=== PATIENT | female | born 1990 | race Caucasian/White ===

== ENCOUNTER → 2016-05-12 | Outpatient (REF) | payer MEDICAID ==
[~2016-05-12] MED LIST: /ANUSHCSU TOP; /MOM400 PO; ACET50TA PO; DOCU10ELUD PO; IBUP600T26 PO; KEPP500T6 PO; NORT25CA2 PO; OXYC1SOL PO; OXYC5CAP28 PO; PAME50CA PO; PRENTAB74 PO; TOPA100T8 PO; VIMP100T PO
== END ==
LOC: M LABNEURO 10:30
PROVIDERS: ATTEND Physician Assistant Medical
DX: R56.9 Unspecified convulsions (principal)

== ENCOUNTER → 2016-09-19 | Outpatient (CLI) | payer MEDICAID, OTHER ==
[~2016-09-19] MED LIST changes: +KEPP1TAB PO; -KEPP500T6 PO; -OXYC1SOL PO; +OXYC1SOL3 PO; +TOPA100T12 PO; -TOPA100T8 PO
[2016-09-19 13:19] LABS: BASO % 0.6 % (0.0-1.0); EOS # 0.1 K/mm3 (0.0-0.50); EOS % 2.3 % (0.0-3.0); LARGE UNSTAINED CELL # 0.1 K/mm3 (0.0-0.4); LARGE UNSTAINED CELL % 2.3 % (0.0-4.0); LYMPH # 2.2 K/mm3 (1.5-6.5); LYMPH % 33.3 % (24.0-44.0); MEAN CORPUSCULAR HEMOGLOBIN 30.9 pg (27.0-33.0); MEAN CORPUSCULAR HGB CONC 33.2 g/dl (32.0-36.5); MONO # 0.4 K/mm3 (0.0-0.8); MONO % 6.7 % (0.0-5.0); NEUTROPHILS # 3.4 K/mm3 (1.8-7.7); NEUTROPHILS % 54.8 % (36.0-66.0); PLATELET COUNT, AUTOMATED 250 k/mm3 (150-450); RED CELL DISTRIBUTION WIDTH 13.3 % (11.5-14.5); WHITE BLOOD COUNT 6.1 K/mm3 (4.0-10.0)
[2016-09-19 14:15] LABS: ALBUMIN 3.6 GM/DL (3.2-5.2); ALBUMIN/GLOBULIN RATIO 0.97 (1.00-1.93); ALKALINE PHOSPHATASE 80 U/L (45-117); ALT/SGPT 16 U/L (12-78); ANION GAP 9 MEQ/L (8-16); AST/SGOT 19 U/L (15-37); BILIRUBIN,TOTAL 0.3 MG/DL (0.2-1.0); BLOOD UREA NITROGEN 9 MG/DL (7-18); CALCIUM LEVEL 9.1 MG/DL (8.5-10.1); CARBON DIOXIDE LEVEL 29 MEQ/L (21-32); CHLORIDE LEVEL 103 MEQ/L (98-107); CREATININE FOR GFR 0.57 MG/DL (0.55-1.02); FREE T4 0.93 NG/DL (0.76-1.46); GLOMERULAR FILTRATION RATE > 60.0 (>60); GLUCOSE, FASTING 55 MG/DL (70-105); POTASSIUM SERUM 4.4 MEQ/L (3.5-5.1); SODIUM LEVEL 141 MEQ/L (136-145); TOTAL PROTEIN 7.3 GM/DL (6.4-8.2)
[2016-09-20 09:53] LABS: T UPTAKE 32 % (30-39); THYROXINE (T4) 7.4 UG/DL (4.5-12.0)
[2016-09-21 09:52] LABS: THYROID PEROXIDASE ANTIBODY < 28.0 U/ML (<60.0)
== END ==
LOC: M LAB 11:33
PROVIDERS: ATTEND Nurse Practitioner Family
DX: G40.909 Epilepsy, unspecified, not intractable, without status epilepticus (principal); R94.6 Abnormal results of thyroid function studies; G43.109 Migraine with aura, not intractable, without status migrainosus

== ENCOUNTER 2017-01-10 09:00 | Outpatient (RCR) | payer MEDICAID | END 2017-01-12 | disposition still patient (30) | LOC: M OUTALCOH 09:00 | PROVIDERS: ATTEND Psychiatry & Neurology Psychiatry | DX: F11.20 Opioid dependence, uncomplicated (principal); F17.200 Nicotine dependence, unspecified, uncomplicated ==

== ENCOUNTER → 2017-01-10 | Outpatient (CLI) | payer OTHER ==
[2017-01-10 13:25] LABS: FREE T4 0.9 NG/DL (0.76-1.46)
== END ==
LOC: M LAB 11:30
PROVIDERS: ATTEND Nurse Practitioner Family
DX: R94.6 Abnormal results of thyroid function studies (principal)

== ENCOUNTER 2017-07-16 01:01 | Inpatient (IN) | payer OTHER, MEDICAID ==
[2017-07-15] MEDS: NS 1,000 ML IV (00:30)
[2017-07-15 23:26] LABS: BASO # 0.1 10^3/uL (0.0-0.2); BASO % 0.4 % (0.0-1.0); EOS # 0.3 10^3/uL (0.0-0.50); EOS % 1.8 % (0.0-3.0); HEMATOCRIT 41.7 % (36.0-47.0); IMMATURE GRANULOCYTE % 0.3 % (0-3.0); LYMPH # 2.4 10^3/uL (1.5-6.5); LYMPH % 16.4 % (24.0-44.0); MEAN CORPUSCULAR HEMOGLOBIN 30.1 pg (27.0-33.0); MEAN CORPUSCULAR HGB CONC 33.6 g/dl (32.0-36.5); MEAN CORPUSCULAR VOLUME 89.7 fl (80.0-96.0); MONO # 0.9 10^3/uL (0.0-0.8); MONO % 6.2 % (0.0-5.0); NEUTROPHILS % 74.9 % (36.0-66.0); PLATELET COUNT, AUTOMATED 268 10^3/uL (150-450); RED BLOOD COUNT 4.65 10^6/uL (4.00-5.40); RED CELL DISTRIBUTION WIDTH 11.7 % (11.5-14.5); WHITE BLOOD COUNT 14.7 10^3/uL (4.0-10.0)
[2017-07-15 23:35] LABS: BEDSIDE GLUCOSE 103 MG/DL (70-105)
[2017-07-15] MEDS: NALOXONE INJ 0.4 MG/1 ML VIAL (J2310) IV ×2 (23:38→23:53)
[2017-07-15 23:44] LABS: OSMOLALITY SERUM 289 MOSM/KG (275-295)
[2017-07-15 23:51] LABS: CONTROL LINE HCG INT CTR LINE PRESENT; HCG, SERUM QUALITATIVE NEGATIVE (NEGATIVE)
[2017-07-15 23:52] LABS: ABG BASE EXCESS -1.5 (-2.0-2.0); ABG HCO3 23.8 MEQ/L (22.0-26.0); ABG PARTIAL PRESSURE CO2 42.4 mmHg (35.0-45.0); ABG STANDARD HCO3 22.1 MEQ/L (22.0-26.0); ABG TOTAL CO2 25.1 MEQ/L (22.0-29.0); ABG pH (ARTERIAL) 7.367 UNITS (7.350-7.450)
[2017-07-15 23:53] LABS: ABG PARTIAL PRESSURE O2 26.9 mmHg (75.0-100.0)
[2017-07-15 23:57] LABS: AMPHETAMINES LEVEL URINE NEGATIVE (NEGATIVE); BARBITURATES URINE NEGATIVE (NEGATIVE); BENZODIAZEPINES URINE NEGATIVE (NEGATIVE); CANNABINOIDS URINE NEGATIVE (NEGATIVE); COCAINE METABOLITE URINE NEGATIVE (NEGATIVE); METHADONE URINE NEGATIVE (NEGATIVE); OPIATES URINE POSITIVE (NEGATIVE); PHENCYCLIDINE URINE NEGATIVE (NEGATIVE)
[2017-07-16 00:03] LABS: ALBUMIN 4.4 GM/DL (3.2-5.2); ALBUMIN/GLOBULIN RATIO 1.22 (1.00-1.93); ALKALINE PHOSPHATASE 150 U/L (45-117); ALT/SGPT 15 U/L (12-78); ANION GAP 7 MEQ/L (8-16); AST/SGOT 23 U/L (7-37); BILIRUBIN,DIRECT < 0.1 MG/DL (0.0-0.2); BILIRUBIN,TOTAL 0.4 MG/DL (0.2-1.0); BLOOD UREA NITROGEN 10 MG/DL (7-18); CALCIUM LEVEL 9.3 MG/DL (8.5-10.1); CARBON DIOXIDE LEVEL 22 MEQ/L (21-32); CHLORIDE LEVEL 109 MEQ/L (98-107); CK-MB VALUE MASS 1.5 NG/ML (<3.6); CPK CREATINE PHOSPHOKINASE 184 U/L (26-192); CREATININE FOR GFR 0.97 MG/DL (0.55-1.30); ETHYL ALCOHOL (ETHANOL) < 0.003 % (0.000-0.010); GLOMERULAR FILTRATION RATE > 60.0 (>60); GLUCOSE, FASTING 105 MG/DL (70-100); MB/CK RELATIVE INDEX 0.81 (< OR =4); SALICYLATE LEVEL 2.1 MG/DL (5.0-30.0); SODIUM LEVEL 138 MEQ/L (136-145); TROPONIN I < 0.02 NG/ML (< 0.10)
[2017-07-16 00:06] LABS: ACETAMINOPHEN LEVEL < 2.0 UG/ML (10.0-30.0); LITHIUM LEVEL 2.72 MEQ/L (0.60-1.20)
[2017-07-16] MEDS: LORazepam 2 MG/ML VIAL (J2060) IV (00:10)
[2017-07-16] MEDS: NALOXONE INJ 0.4 MG/1 ML VIAL (J2310) IV (00:25)
[2017-07-16] MEDS: ETOMIDATE INJ 20MG/10ML VIAL IV (00:43)
[2017-07-16] MEDS: ROCURONIUM BROMIDE 50 MG/5 ML VIAL IV (00:45)
[2017-07-16] MEDS: PROPOFOL 1,000 MG in APPROPRIATE DILUENT 1 EA IV ×5 (00:48→21:13)
[~2017-07-16 01:01] MED LIST changes: -/ANUSHCSU TOP; -/MOM400 PO; -ACET50TA PO; +AMMONIA AROMATIC INHALANT (FLOOR STOCK) As Ordered; -DOCU10ELUD PO; -IBUP600T26 PO; -KEPP1TAB PO; +LORazepam 2 MG/ML VIAL (J2060) As Ordered; -NORT25CA2 PO; -OXYC1SOL3 PO; -OXYC5CAP28 PO; -PAME50CA PO; -PRENTAB74 PO; +PROPOFOL 1,000 MG/100 ML VIAL As Ordered; -TOPA100T12 PO; -VIMP100T PO
[2017-07-16 01:53] LABS: ABG BASE EXCESS -5.9 (-2.0-2.0); ABG O2 SATURATION 99.1 % (95.0-99.0); ABG PARTIAL PRESSURE CO2 26.7 mmHg (35.0-45.0); ABG PARTIAL PRESSURE O2 145.7 mmHg (75.0-100.0); ABG STANDARD HCO3 19.7 MEQ/L (22.0-26.0); ABG TOTAL CO2 17.8 MEQ/L (22.0-29.0); ABG pH (ARTERIAL) 7.421 UNITS (7.350-7.450)
[2017-07-16] MEDS ORDERED: ONDANSETRON 4 MG TAB (S0181) PO (02:00)
[2017-07-16] MEDS ORDERED: ALBUTEROL SULFATE 2.5 MG/0.5 ML INH NEB SOLN NEB (02:15)
[2017-07-16 02:53] LABS: AMMONIA 46 uMOL/L (<32)
[2017-07-16 02:54] LABS: LITHIUM LEVEL 2.23 MEQ/L (0.60-1.20)
[2017-07-16 02:57] LABS: LACTIC ACID SEPSIS PROTOCOL 0.7 MMOL/L (0.4-2.0)
[2017-07-16] MEDS: NS 1,000 ML IV ×4 (03:13→23:49)
[2017-07-16] MEDS: SODIUM CHLORIDE 0.9% 1000 ML IV (03:44)
[2017-07-16] MEDS: MIDAZOLAM INJ 2 MG/2 ML VIAL (J2250) IV ×9 (05:52→23:49)
[2017-07-16] MEDS: IPRATROPIUM 0.5MG/ALBUTEROL 2.5MG INH SOL UD 3ML (DUONEB)(J7620) NEB ×5 (06:07→19:54)
[2017-07-16 08:05] LABS: LITHIUM LEVEL 0.73 MEQ/L (0.60-1.20)
[2017-07-16] MEDS: CHLORHEXIDINE ORAL RINSE 0.12%/15ML 120ML BOTTLE MT ×2 (09:44→20:58)
[2017-07-16] MEDS: ENOXAPARIN 40 MG/0.4 ML SYRINGE (J1650) SC (09:44)
[2017-07-16] MEDS: PANTOPRAZOLE 40MG INJ (PROTONIX) (C9113) IV (09:44)
[2017-07-16 11:23] LABS: LITHIUM LEVEL 1.13 MEQ/L (0.60-1.20)
[2017-07-16 12:48] LABS: BASO # 0.1 10^3/uL (0.0-0.2); BASO % 0.5 % (0.0-1.0); EOS # 0.2 10^3/uL (0.0-0.50); EOS % 1.4 % (0.0-3.0); HEMATOCRIT 33.7 % (36.0-47.0); IMMATURE GRANULOCYTE % 0.3 % (0-3.0); LYMPH # 2.5 10^3/uL (1.5-6.5); LYMPH % 18.6 % (24.0-44.0); MEAN CORPUSCULAR HEMOGLOBIN 29.9 pg (27.0-33.0); MEAN CORPUSCULAR HGB CONC 33.8 g/dl (32.0-36.5); MEAN CORPUSCULAR VOLUME 88.5 fl (80.0-96.0); MONO # 1.1 10^3/uL (0.0-0.8); MONO % 8.3 % (0.0-5.0); NEUTROPHILS # 9.4 10^3/uL (1.8-7.7); NEUTROPHILS % 70.9 % (36.0-66.0); PLATELET COUNT, AUTOMATED 210 10^3/uL (150-450); RED BLOOD COUNT 3.81 10^6/uL (4.00-5.40); RED CELL DISTRIBUTION WIDTH 11.7 % (11.5-14.5); WHITE BLOOD COUNT 13.3 10^3/uL (4.0-10.0)
[2017-07-16 13:09] LABS: HEMOGLOBIN 11.4 g/dl (12.0-15.5)
[2017-07-16 13:24] LABS: ALBUMIN 3.3 GM/DL (3.2-5.2); ALBUMIN/GLOBULIN RATIO 1.27 (1.00-1.93); ALKALINE PHOSPHATASE 126 U/L (45-117); ALT/SGPT 11 U/L (12-78); ANION GAP 6 MEQ/L (8-16); AST/SGOT 16 U/L (7-37); BILIRUBIN,TOTAL 0.4 MG/DL (0.2-1.0); BLOOD UREA NITROGEN 4 MG/DL (7-18); CARBON DIOXIDE LEVEL 29 MEQ/L (21-32); CHLORIDE LEVEL 107 MEQ/L (98-107); CHOLESTEROL LEVEL 104 MG/DL (< 200); CPK CREATINE PHOSPHOKINASE 232 U/L (26-192); CREATININE FOR GFR 0.64 MG/DL (0.55-1.30); GLOMERULAR FILTRATION RATE > 60.0 (>60); GLUCOSE, FASTING 108 MG/DL (70-100); LDH LACTATE DEHYDROGENASE 137 U/L (84-246); MAGNESIUM LEVEL 1.8 MG/DL (1.8-2.4); PHOSPHORUS LEVEL 1.7 MG/DL (2.5-4.9); SODIUM LEVEL 142 MEQ/L (136-145); TOTAL PROTEIN 5.9 GM/DL (6.4-8.2); TRIGLYCERIDES LEVEL 96 MG/DL (<150)
[2017-07-16 13:40] LABS: POTASSIUM SERUM 2.5 MEQ/L (3.5-5.1)
[2017-07-16] MEDS: KCL 10MEQ/100ML SWI (KRUN) 10 MEQ in APPROPRIATE DILUENT 1 EA IV (14:10)
[2017-07-16 15:33] LABS: LITHIUM LEVEL 1.15 MEQ/L (0.60-1.20)
[2017-07-16] MEDS: POTASSIUM PHOSPHATE INJ 18 MMOL in D5W 250 ML IV (16:10)
[2017-07-17] MEDS: IPRATROPIUM 0.5MG/ALBUTEROL 2.5MG INH SOL UD 3ML (DUONEB)(J7620) NEB ×7 (00:17→23:19)
[2017-07-17] MEDS: MIDAZOLAM INJ 2 MG/2 ML VIAL (J2250) IV ×15 (00:31→23:58)
[2017-07-17] MEDS: PROPOFOL 1,000 MG in APPROPRIATE DILUENT 1 EA IV ×7 (01:18→23:32)
[2017-07-17] MEDS: NS 1,000 ML IV ×2 (04:54→09:42)
[2017-07-17 04:57] LABS: BASO # 0.1 10^3/uL (0.0-0.2); BASO % 0.4 % (0.0-1.0); EOS % 0.3 % (0.0-3.0); HEMOGLOBIN 10.5 g/dl (12.0-15.5); IMMATURE GRANULOCYTE % 0.3 % (0-3.0); LYMPH # 1.3 10^3/uL (1.5-6.5); LYMPH % 8.5 % (24.0-44.0); MEAN CORPUSCULAR HEMOGLOBIN 30.2 pg (27.0-33.0); MEAN CORPUSCULAR HGB CONC 32.8 g/dl (32.0-36.5); MONO # 1.4 10^3/uL (0.0-0.8); MONO % 8.7 % (0.0-5.0); NEUTROPHILS # 12.9 10^3/uL (1.8-7.7); NEUTROPHILS % 81.8 % (36.0-66.0); PLATELET COUNT, AUTOMATED 200 10^3/uL (150-450); RED BLOOD COUNT 3.48 10^6/uL (4.00-5.40); RED CELL DISTRIBUTION WIDTH 12.3 % (11.5-14.5); WHITE BLOOD COUNT 15.7 10^3/uL (4.0-10.0)
[2017-07-17 05:18] LABS: ALBUMIN 2.9 GM/DL (3.2-5.2); ALBUMIN/GLOBULIN RATIO 0.97 (1.00-1.93); ALKALINE PHOSPHATASE 120 U/L (45-117); ALT/SGPT 11 U/L (12-78); ANION GAP 4 MEQ/L (8-16); AST/SGOT 14 U/L (7-37); BILIRUBIN,TOTAL 0.4 MG/DL (0.2-1.0); BLOOD UREA NITROGEN 3 MG/DL (7-18); CALCIUM LEVEL 7.3 MG/DL (8.5-10.1); CARBON DIOXIDE LEVEL 28 MEQ/L (21-32); CHLORIDE LEVEL 114 MEQ/L (98-107); CHOLESTEROL LEVEL 90 MG/DL (< 200); CPK CREATINE PHOSPHOKINASE 193 U/L (26-192); CREATININE FOR GFR 0.73 MG/DL (0.55-1.30); GLOMERULAR FILTRATION RATE > 60.0 (>60); GLUCOSE, FASTING 125 MG/DL (70-100); LDH LACTATE DEHYDROGENASE 134 U/L (84-246); MAGNESIUM LEVEL 1.7 MG/DL (1.8-2.4); PHOSPHORUS LEVEL 3.5 MG/DL (2.5-4.9); POTASSIUM SERUM 3.4 MEQ/L (3.5-5.1); SODIUM LEVEL 146 MEQ/L (136-145); TOTAL PROTEIN 5.9 GM/DL (6.4-8.2); TRIGLYCERIDES LEVEL 63 MG/DL (<150)
[2017-07-17] MEDS: MORPHINE 4 MG/ML 1ML VIAL/SYRINGE (J2270) IV ×4 (06:25→16:21)
[2017-07-17] MEDS: ACETAMINOPHEN 325 MG/10.15 ML UDC GT ×2 (06:26→20:10)
[2017-07-17 07:01] LABS: AMMONIA 41 uMOL/L (<32)
[2017-07-17 07:05] LABS: LACTIC ACID SEPSIS PROTOCOL 1.2 MMOL/L (0.4-2.0)
[2017-07-17 07:10] LABS: LITHIUM LEVEL 0.91 MEQ/L (0.60-1.20)
[2017-07-17 07:15] LABS: ABG BASE EXCESS -0.2 (-2.0-2.0); ABG HCO3 23.5 MEQ/L (22.0-26.0); ABG O2 SATURATION 97.9 % (95.0-99.0); ABG PARTIAL PRESSURE O2 98.3 mmHg (75.0-100.0); ABG STANDARD HCO3 24.3 MEQ/L (22.0-26.0); ABG TOTAL CO2 24.5 MEQ/L (22.0-29.0); ABG pH (ARTERIAL) 7.444 UNITS (7.350-7.450)
[2017-07-17] MEDS: CHLORHEXIDINE ORAL RINSE 0.12%/15ML 120ML BOTTLE MT ×2 (07:51→20:11)
[2017-07-17] MEDS: ENOXAPARIN 40 MG/0.4 ML SYRINGE (J1650) SC (07:51)
[2017-07-17] MEDS: PANTOPRAZOLE 40MG INJ (PROTONIX) (C9113) IV (08:04)
[2017-07-17] MEDS: D5W/0.45% SODIUM CHLORIDE 1,000 ML IV (14:23)
[2017-07-17] MEDS: KCL 10MEQ/100ML SWI (KRUN) 10 MEQ in APPROPRIATE DILUENT 1 EA IV ×2 (14:23→15:48)
[2017-07-17] MEDS: MAG SULF 1GM/100ML (MAG RUN) 1 GM in APPROPRIATE DILUENT 1 EA IV (17:00)
[2017-07-17] MEDS: PIPERACILLIN/TAZOBACTAM SOD 3.375 GM in D5W MINI-BAG PLUS 50 ML IV ×2 (17:39→23:30)
[2017-07-17] MEDS: levETIRAcetam INJection 1,000 MG in D5W 100 ML IV (18:22)
[2017-07-17] MEDS: VANCOMYCIN HCL 1,000 MG, VIAL MATE ADAPTER 1 EACH in D5W 250 ML IV (18:46)
[2017-07-18 00:59] LABS: CK-MB VALUE MASS < 1.0 NG/ML (<3.6); CPK CREATINE PHOSPHOKINASE 132 U/L (26-192); MB/CK RELATIVE INDEX 0.75 (< OR =4); TROPONIN I < 0.02 NG/ML (< 0.10)
[2017-07-18] MEDS: VANCOMYCIN HCL 1,000 MG, VIAL MATE ADAPTER 1 EACH in D5W 250 ML IV ×3 (03:33→19:28)
[2017-07-18] MEDS: PROPOFOL 1,000 MG in APPROPRIATE DILUENT 1 EA IV ×4 (03:34→21:51)
[2017-07-18] MEDS: IPRATROPIUM 0.5MG/ALBUTEROL 2.5MG INH SOL UD 3ML (DUONEB)(J7620) NEB ×6 (04:03→23:23)
[2017-07-18] MEDS: PIPERACILLIN/TAZOBACTAM SOD 3.375 GM in D5W MINI-BAG PLUS 50 ML IV ×4 (04:51→23:13)
[2017-07-18 05:04] LABS: BASO # 0.1 10^3/uL (0.0-0.2); BASO % 0.4 % (0.0-1.0); EOS # 0.2 10^3/uL (0.0-0.50); EOS % 1.5 % (0.0-3.0); HEMATOCRIT 31.9 % (36.0-47.0); HEMOGLOBIN 10.3 g/dl (12.0-15.5); IMMATURE GRANULOCYTE % 0.6 % (0-3.0); LYMPH # 1.7 10^3/uL (1.5-6.5); LYMPH % 12.1 % (24.0-44.0); MEAN CORPUSCULAR HEMOGLOBIN 30.2 pg (27.0-33.0); MEAN CORPUSCULAR HGB CONC 32.3 g/dl (32.0-36.5); MEAN CORPUSCULAR VOLUME 93.5 fl (80.0-96.0); MONO # 1.1 10^3/uL (0.0-0.8); MONO % 7.3 % (0.0-5.0); NEUTROPHILS # 11.2 10^3/uL (1.8-7.7); NEUTROPHILS % 78.1 % (36.0-66.0); PLATELET COUNT, AUTOMATED 132 10^3/uL (150-450); RED BLOOD COUNT 3.41 10^6/uL (4.00-5.40); RED CELL DISTRIBUTION WIDTH 13.1 % (11.5-14.5); WHITE BLOOD COUNT 14.4 10^3/uL (4.0-10.0)
[2017-07-18] MEDS: levETIRAcetam INJection 1,000 MG in D5W 100 ML IV ×2 (05:47→18:57)
[2017-07-18 05:49] LABS: POS COUNT POS FLAG
[2017-07-18] MEDS: MIDAZOLAM INJ 2 MG/2 ML VIAL (J2250) IV ×4 (06:46→23:43)
[2017-07-18 07:44] LABS: BLOOD UREA NITROGEN 4 MG/DL (7-18); CREATININE FOR GFR 0.63 MG/DL (0.55-1.30); GLOMERULAR FILTRATION RATE > 60.0 (>60); GLUCOSE, FASTING 163 MG/DL (70-100); SODIUM LEVEL 145 MEQ/L (136-145)
[2017-07-18 07:45] LABS: CHLORIDE LEVEL 112 MEQ/L (98-107)
[2017-07-18 07:46] LABS: ALKALINE PHOSPHATASE 123 U/L (45-117); ALT/SGPT 10 U/L (12-78); ANION GAP 8 MEQ/L (8-16); AST/SGOT 14 U/L (7-37); BILIRUBIN,TOTAL 0.4 MG/DL (0.2-1.0); CALCIUM LEVEL 7.8 MG/DL (8.5-10.1); CARBON DIOXIDE LEVEL 25 MEQ/L (21-32); CHOLESTEROL LEVEL 72 MG/DL (< 200); CK-MB VALUE MASS < 1.0 NG/ML (<3.6); CPK CREATINE PHOSPHOKINASE 106 U/L (26-192); LDH LACTATE DEHYDROGENASE 133 U/L (84-246); MB/CK RELATIVE INDEX 0.94 (< OR =4); PHOSPHORUS LEVEL 1.6 MG/DL (2.5-4.9); TRIGLYCERIDES LEVEL 70 MG/DL (<150)
[2017-07-18 07:47] LABS: ALBUMIN 2.6 GM/DL (3.2-5.2); ALBUMIN/GLOBULIN RATIO 0.81 (1.00-1.93); MAGNESIUM LEVEL 2.1 MG/DL (1.8-2.4); TOTAL PROTEIN 5.8 GM/DL (6.4-8.2); TROPONIN I < 0.02 NG/ML (< 0.10)
[2017-07-18 07:51] LABS: POTASSIUM SERUM 2.8 MEQ/L (3.5-5.1)
[2017-07-18] MEDS: POTASSIUM PHOSPHATE INJ 20 MMOL in D5W 250 ML IV (09:20)
[2017-07-18] MEDS: PANTOPRAZOLE 40MG INJ (PROTONIX) (C9113) IV (10:29)
[2017-07-18] MEDS: ENOXAPARIN 40 MG/0.4 ML SYRINGE (J1650) SC (10:29)
[2017-07-18] MEDS: CHLORHEXIDINE ORAL RINSE 0.12%/15ML 120ML BOTTLE MT ×2 (10:30→20:43)
[2017-07-18] MEDS ORDERED: dexameTHASONE 20 MG/5 ML VIAL (J1100) As Ordered (11:01)
[2017-07-18] MEDS: dexameTHASONE 20 MG/5 ML VIAL (J1100) IV ×2 (11:05→20:42)
[2017-07-18] MEDS: RACEPINEPHrine 2.25 % UD INHA NEB (11:05)
[2017-07-18] MEDS ORDERED: FUROSEMIDE 40 MG/4 ML VIAL (J1940) As Ordered (11:10)
[2017-07-18] MEDS ORDERED: SUCCINYLCHOLINE INJ 200 MG/10 ML VIAL (J0330) As Ordered (11:14)
[2017-07-18] MEDS: SUCCINYLCHOLINE INJ 200 MG/10 ML VIAL (J0330) IV ×2 (11:56→12:08)
[2017-07-18] MEDS: FUROSEMIDE 40 MG/4 ML VIAL (J1940) IV (12:08)
[2017-07-18 12:45] LABS: CK-MB VALUE MASS < 1.0 NG/ML (<3.6); CPK CREATINE PHOSPHOKINASE 167 U/L (26-192); MB/CK RELATIVE INDEX 0.59 (< OR =4); TROPONIN I < 0.02 NG/ML (< 0.10)
[2017-07-18 14:11] LABS: ABG BASE EXCESS 3.3 (-2.0-2.0); ABG HCO3 27.3 MEQ/L (22.0-26.0); ABG PARTIAL PRESSURE CO2 39.3 mmHg (35.0-45.0); ABG PARTIAL PRESSURE O2 133.2 mmHg (75.0-100.0); ABG STANDARD HCO3 27.4 MEQ/L (22.0-26.0); ABG TOTAL CO2 28.5 MEQ/L (22.0-29.0); ABG pH (ARTERIAL) 7.459 UNITS (7.350-7.450)
[2017-07-18 14:29] LABS: ANION GAP 8 MEQ/L (8-16); BLOOD UREA NITROGEN 5 MG/DL (7-18); CALCIUM LEVEL 8.3 MG/DL (8.5-10.1); CARBON DIOXIDE LEVEL 27 MEQ/L (21-32); CHLORIDE LEVEL 110 MEQ/L (98-107); CREATININE FOR GFR 0.69 MG/DL (0.55-1.30); GLOMERULAR FILTRATION RATE > 60.0 (>60); GLUCOSE, FASTING 158 MG/DL (70-100); POTASSIUM SERUM 3.3 MEQ/L (3.5-5.1); SODIUM LEVEL 145 MEQ/L (136-145)
[2017-07-18 18:24] LABS: MAGNESIUM LEVEL 1.6 MG/DL (1.8-2.4)
[2017-07-18 18:24] LABS: POTASSIUM SERUM 3.1 MEQ/L (3.5-5.1)
[2017-07-18 18:30] LABS: VANCOMYCIN LEVEL TROUGH 14.7 UG/ML (10.0-20.0)
[2017-07-18] MEDS: MAG SULF 1GM/100ML (MAG RUN) 1 GM in APPROPRIATE DILUENT 1 EA IV (19:54)
[2017-07-18] MEDS: KCL 10MEQ/100ML SWI (KRUN) 10 MEQ in APPROPRIATE DILUENT 1 EA IV ×2 (20:43→21:44)
[2017-07-18] MEDS: ACETAMINOPHEN 325 MG/10.15 ML UDC GT (20:54)
[2017-07-19] MEDS: PROPOFOL 1,000 MG in APPROPRIATE DILUENT 1 EA IV ×5 (01:19→20:57)
[2017-07-19] MEDS: VANCOMYCIN HCL 1,000 MG, VIAL MATE ADAPTER 1 EACH in D5W 250 ML IV (03:14)
[2017-07-19] MEDS: IPRATROPIUM 0.5MG/ALBUTEROL 2.5MG INH SOL UD 3ML (DUONEB)(J7620) NEB ×6 (03:35→23:36)
[2017-07-19] MEDS: PIPERACILLIN/TAZOBACTAM SOD 3.375 GM in D5W MINI-BAG PLUS 50 ML IV ×4 (04:33→23:42)
[2017-07-19 05:04] LABS: BASO % 0.2 % (0.0-1.0); HEMATOCRIT 32.5 % (36.0-47.0); HEMOGLOBIN 10.8 g/dl (12.0-15.5); LYMPH # 0.6 10^3/uL (1.5-6.5); MEAN CORPUSCULAR HGB CONC 33.2 g/dl (32.0-36.5); MEAN CORPUSCULAR VOLUME 90.3 fl (80.0-96.0); MONO # 0.4 10^3/uL (0.0-0.8); MONO % 3.8 % (0.0-5.0); NEUTROPHILS # 10.3 10^3/uL (1.8-7.7); PLATELET COUNT, AUTOMATED 211 10^3/uL (150-450); RED CELL DISTRIBUTION WIDTH 13.2 % (11.5-14.5); WHITE BLOOD COUNT 11.5 10^3/uL (4.0-10.0)
[2017-07-19 05:23] LABS: ALBUMIN 2.7 GM/DL (3.2-5.2); ALBUMIN/GLOBULIN RATIO 0.73 (1.00-1.93); ALKALINE PHOSPHATASE 122 U/L (45-117); ALT/SGPT 11 U/L (12-78); ANION GAP 6 MEQ/L (8-16); AST/SGOT 14 U/L (7-37); BILIRUBIN,TOTAL 0.3 MG/DL (0.2-1.0); BLOOD UREA NITROGEN 6 MG/DL (7-18); CALCIUM LEVEL 8.3 MG/DL (8.5-10.1); CARBON DIOXIDE LEVEL 29 MEQ/L (21-32); CHLORIDE LEVEL 107 MEQ/L (98-107); CHOLESTEROL LEVEL 91 MG/DL (< 200); CPK CREATINE PHOSPHOKINASE 140 U/L (26-192); CREATININE FOR GFR 0.67 MG/DL (0.55-1.30); GLOMERULAR FILTRATION RATE > 60.0 (>60); GLUCOSE, FASTING 242 MG/DL (70-100); LDH LACTATE DEHYDROGENASE 154 U/L (84-246); MAGNESIUM LEVEL 2.1 MG/DL (1.8-2.4); PHOSPHORUS LEVEL 2.1 MG/DL (2.5-4.9); POTASSIUM SERUM 3.2 MEQ/L (3.5-5.1); SODIUM LEVEL 142 MEQ/L (136-145); TOTAL PROTEIN 6.4 GM/DL (6.4-8.2); TRIGLYCERIDES LEVEL 58 MG/DL (<150)
[2017-07-19] MEDS: levETIRAcetam INJection 1,000 MG in D5W 100 ML IV ×2 (05:42→17:04)
[2017-07-19] MEDS: POTASSIUM PHOSPHATE INJ 20 MMOL in D5W 250 ML IV (09:00)
[2017-07-19] MEDS: dexameTHASONE 20 MG/5 ML VIAL (J1100) IV ×2 (09:10→21:15)
[2017-07-19] MEDS: CHLORHEXIDINE ORAL RINSE 0.12%/15ML 120ML BOTTLE MT ×2 (09:10→20:57)
[2017-07-19] MEDS: PANTOPRAZOLE 40MG INJ (PROTONIX) (C9113) IV (09:10)
[2017-07-19] MEDS: ENOXAPARIN 40 MG/0.4 ML SYRINGE (J1650) SC (09:10)
[2017-07-19] MEDS: MIDAZOLAM INJ 2 MG/2 ML VIAL (J2250) IV ×6 (10:50→21:22)
[2017-07-19] MEDS ORDERED: POTASSIUM PHOSPHATE IV ×4 (11:00→20:00)
[2017-07-19] MEDS ORDERED: D5W IV ×4 (11:00→20:00)
[2017-07-19] MEDS: KCL 20MEQ IN D5/0.45NS 1000ML 1,000 ML IV (11:24)
[2017-07-19] MEDS: KCL 10MEQ/100ML SWI (KRUN) 10 MEQ in APPROPRIATE DILUENT 1 EA IV ×2 (11:25→13:01)
[2017-07-19] MEDS: POTASSIUM PHOSPHATE INJ 18 MMOL in D5W 250 ML IV (14:07)
[2017-07-19] MEDS: BISACODYL 10 MG SUPP PR (17:29)
[2017-07-19] MEDS: METOCLOPRAMIDE INJ 10MG/2ML VIAL (J2765) IV ×2 (17:29→23:41)
[2017-07-20] MEDS: PROPOFOL 1,000 MG in APPROPRIATE DILUENT 1 EA IV ×2 (01:56→07:43)
[2017-07-20] MEDS: IPRATROPIUM 0.5MG/ALBUTEROL 2.5MG INH SOL UD 3ML (DUONEB)(J7620) NEB ×2 (03:11→07:26)
[2017-07-20] MEDS: MORPHINE 4 MG/ML 1ML VIAL/SYRINGE (J2270) IV (04:41)
[2017-07-20 04:45] LABS: BASO % 0.1 % (0.0-1.0); HEMATOCRIT 34.1 % (36.0-47.0); IMMATURE GRANULOCYTE % 0.9 % (0-3.0); LYMPH % 8.5 % (24.0-44.0); MEAN CORPUSCULAR HEMOGLOBIN 29.5 pg (27.0-33.0); MEAN CORPUSCULAR HGB CONC 32.3 g/dl (32.0-36.5); MEAN CORPUSCULAR VOLUME 91.4 fl (80.0-96.0); MONO # 0.4 10^3/uL (0.0-0.8); MONO % 3.4 % (0.0-5.0); NEUTROPHILS # 10.4 10^3/uL (1.8-7.7); NEUTROPHILS % 87.1 % (36.0-66.0); PLATELET COUNT, AUTOMATED 248 10^3/uL (150-450); RED BLOOD COUNT 3.73 10^6/uL (4.00-5.40); RED CELL DISTRIBUTION WIDTH 13.2 % (11.5-14.5); WHITE BLOOD COUNT 11.9 10^3/uL (4.0-10.0)
[2017-07-20 05:15] LABS: ALBUMIN 3.1 GM/DL (3.2-5.2); ALBUMIN/GLOBULIN RATIO 0.78 (1.00-1.93); ALKALINE PHOSPHATASE 98 U/L (45-117); ALT/SGPT 15 U/L (12-78); ANION GAP 6 MEQ/L (8-16); AST/SGOT 16 U/L (7-37); BILIRUBIN,TOTAL 0.3 MG/DL (0.2-1.0); BLOOD UREA NITROGEN 9 MG/DL (7-18); CALCIUM LEVEL 8.4 MG/DL (8.5-10.1); CARBON DIOXIDE LEVEL 27 MEQ/L (21-32); CHLORIDE LEVEL 110 MEQ/L (98-107); CHOLESTEROL LEVEL 127 MG/DL (< 200); CREATININE FOR GFR 0.48 MG/DL (0.55-1.30); GLOMERULAR FILTRATION RATE > 60.0 (>60); GLUCOSE, FASTING 154 MG/DL (70-100); LDH LACTATE DEHYDROGENASE 181 U/L (84-246); MAGNESIUM LEVEL 2.1 MG/DL (1.8-2.4); PHOSPHORUS LEVEL 3.4 MG/DL (2.5-4.9); POTASSIUM SERUM 4.4 MEQ/L (3.5-5.1); SODIUM LEVEL 143 MEQ/L (136-145); TOTAL PROTEIN 7.1 GM/DL (6.4-8.2); TRIGLYCERIDES LEVEL 91 MG/DL (<150)
[2017-07-20] MEDS: KCL 20MEQ IN D5/0.45NS 1000ML 1,000 ML IV (05:19)
[2017-07-20] MEDS: METOCLOPRAMIDE INJ 10MG/2ML VIAL (J2765) IV (05:21)
[2017-07-20] MEDS: PIPERACILLIN/TAZOBACTAM SOD 3.375 GM in D5W MINI-BAG PLUS 50 ML IV ×4 (05:21→23:58)
[2017-07-20 05:36] LABS: CPK CREATINE PHOSPHOKINASE 291 U/L (26-192)
[2017-07-20] MEDS: PANTOPRAZOLE 40MG INJ (PROTONIX) (C9113) IV (07:44)
[2017-07-20] MEDS: CHLORHEXIDINE ORAL RINSE 0.12%/15ML 120ML BOTTLE MT (07:44)
[2017-07-20] MEDS: ENOXAPARIN 40 MG/0.4 ML SYRINGE (J1650) SC (07:44)
[2017-07-20] MEDS: dexameTHASONE 20 MG/5 ML VIAL (J1100) IV (07:44)
[2017-07-20] MEDS: RACEPINEPHrine 2.25 % UD INHA NEB (09:28)
[2017-07-20] MEDS: levETIRAcetam INJection 1,000 MG in D5W 100 ML IV ×2 (10:15→18:01)
[2017-07-21 05:14] LABS: BASO % 0.2 % (0.0-1.0); EOS # 0.1 10^3/uL (0.0-0.50); EOS % 0.9 % (0.0-3.0); HEMATOCRIT 33.3 % (36.0-47.0); IMMATURE GRANULOCYTE % 0.4 % (0-3.0); LYMPH % 29.6 % (24.0-44.0); MEAN CORPUSCULAR VOLUME 90.7 fl (80.0-96.0); MONO # 0.5 10^3/uL (0.0-0.8); NEUTROPHILS # 6.5 10^3/uL (1.8-7.7); NEUTROPHILS % 63.9 % (36.0-66.0); PLATELET COUNT, AUTOMATED 289 10^3/uL (150-450); RED BLOOD COUNT 3.67 10^6/uL (4.00-5.40); RED CELL DISTRIBUTION WIDTH 12.3 % (11.5-14.5); WHITE BLOOD COUNT 10.2 10^3/uL (4.0-10.0)
[2017-07-21 05:42] LABS: ALBUMIN 2.9 GM/DL (3.2-5.2); ALBUMIN/GLOBULIN RATIO 0.81 (1.00-1.93); ALKALINE PHOSPHATASE 83 U/L (45-117); ALT/SGPT 14 U/L (12-78); ANION GAP 6 MEQ/L (8-16); AST/SGOT 18 U/L (7-37); BILIRUBIN,TOTAL 0.3 MG/DL (0.2-1.0); BLOOD UREA NITROGEN 14 MG/DL (7-18); CALCIUM LEVEL 8.2 MG/DL (8.5-10.1); CARBON DIOXIDE LEVEL 26 MEQ/L (21-32); CHLORIDE LEVEL 109 MEQ/L (98-107); CHOLESTEROL LEVEL 126 MG/DL (< 200); CPK CREATINE PHOSPHOKINASE 257 U/L (26-192); CREATININE FOR GFR 0.46 MG/DL (0.55-1.30); GLOMERULAR FILTRATION RATE > 60.0 (>60); GLUCOSE, FASTING 129 MG/DL (70-100); LDH LACTATE DEHYDROGENASE 159 U/L (84-246); MAGNESIUM LEVEL 1.7 MG/DL (1.8-2.4); PHOSPHORUS LEVEL 2.4 MG/DL (2.5-4.9); POTASSIUM SERUM 3.2 MEQ/L (3.5-5.1); SODIUM LEVEL 141 MEQ/L (136-145); TOTAL PROTEIN 6.5 GM/DL (6.4-8.2); TRIGLYCERIDES LEVEL 158 MG/DL (<150)
[2017-07-21 05:53] LABS: FREE T4 1.03 NG/DL (0.76-1.46)
[2017-07-21] MEDS: PIPERACILLIN/TAZOBACTAM SOD 3.375 GM in D5W MINI-BAG PLUS 50 ML IV (06:11)
[2017-07-21] MEDS: levETIRAcetam INJection 1,000 MG in D5W 100 ML IV (06:11)
[2017-07-21] MEDS: MAG SULF 1GM/100ML (MAG RUN) 1 GM in APPROPRIATE DILUENT 1 EA IV (07:42)
[2017-07-21] MEDS: POTASSIUM CHLORIDE 10 MEQ SR TABLET PO (07:43)
[2017-07-21] MEDS: LevoFLOXacin 500 MG TABLET PO (09:51)
[2017-07-21] MEDS: PANTOPRAZOLE 40MG TAB (PROTONIX) PO (09:51)
[2017-07-21] MEDS: ENOXAPARIN 40 MG/0.4 ML SYRINGE (J1650) SC (09:52)
[2017-07-21 10:33] LABS: TOTAL T3 80.8 NG/DL (60.0-181.0)
[2017-07-21] MEDS: TOPIRAMATE (TopAMAX) 25 MG TAB PO ×2 (10:43→20:23)
[2017-07-21] MEDS: traZODone 50 MG TAB PO (20:23)
[2017-07-22] MEDS: ONDANSETRON 4 MG TAB (S0181) PO ×3 (01:29→09:30)
[2017-07-22] MEDS: LevoFLOXacin 500 MG TABLET PO (05:30)
[2017-07-22 07:11] LABS: HEMATOCRIT 36.3 % (36.0-47.0); HEMOGLOBIN 12.1 g/dl (12.0-15.5); MEAN CORPUSCULAR HEMOGLOBIN 29.7 pg (27.0-33.0); MEAN CORPUSCULAR HGB CONC 33.3 g/dl (32.0-36.5); PLATELET COUNT, AUTOMATED 357 10^3/uL (150-450); RED BLOOD COUNT 4.08 10^6/uL (4.00-5.40); RED CELL DISTRIBUTION WIDTH 11.9 % (11.5-14.5); WHITE BLOOD COUNT 8.2 10^3/uL (4.0-10.0)
[2017-07-22] MEDS: TOPIRAMATE (TopAMAX) 25 MG TAB PO ×2 (08:31→20:57)
[2017-07-22] MEDS: ENOXAPARIN 40 MG/0.4 ML SYRINGE (J1650) SC (08:32)
[2017-07-22 09:07] LABS: ALBUMIN 3.2 GM/DL (3.2-5.2); ALKALINE PHOSPHATASE 89 U/L (45-117); ALT/SGPT 29 U/L (12-78); ANION GAP 9 MEQ/L (8-16); AST/SGOT 40 U/L (7-37); BILIRUBIN,TOTAL 0.3 MG/DL (0.2-1.0); BLOOD UREA NITROGEN 12 MG/DL (7-18); CALCIUM LEVEL 8.8 MG/DL (8.5-10.1); CARBON DIOXIDE LEVEL 23 MEQ/L (21-32); CHLORIDE LEVEL 108 MEQ/L (98-107); CREATININE FOR GFR 0.57 MG/DL (0.55-1.30); GLOMERULAR FILTRATION RATE > 60.0 (>60); GLUCOSE, FASTING 120 MG/DL (70-100); SODIUM LEVEL 140 MEQ/L (136-145); TOTAL PROTEIN 7.2 GM/DL (6.4-8.2)
[2017-07-23] MEDS: LevoFLOXacin 500 MG TABLET PO (06:06)
[2017-07-23 06:36] LABS: BASO % 0.4 % (0.0-1.0); EOS # 0.3 10^3/uL (0.0-0.50); EOS % 3.4 % (0.0-3.0); HEMATOCRIT 36.1 % (36.0-47.0); HEMOGLOBIN 12.4 g/dl (12.0-15.5); LYMPH % 36.8 % (24.0-44.0); MEAN CORPUSCULAR HGB CONC 34.3 g/dl (32.0-36.5); MEAN CORPUSCULAR VOLUME 87.2 fl (80.0-96.0); MONO # 0.5 10^3/uL (0.0-0.8); MONO % 6.3 % (0.0-5.0); NEUTROPHILS # 4.2 10^3/uL (1.8-7.7); NEUTROPHILS % 52.1 % (36.0-66.0); PLATELET COUNT, AUTOMATED 394 10^3/uL (150-450); RED BLOOD COUNT 4.14 10^6/uL (4.00-5.40); RED CELL DISTRIBUTION WIDTH 11.9 % (11.5-14.5); WHITE BLOOD COUNT 8.1 10^3/uL (4.0-10.0)
[2017-07-23 06:54] LABS: ALBUMIN/GLOBULIN RATIO 0.79 (1.00-1.93); ALKALINE PHOSPHATASE 81 U/L (45-117); ALT/SGPT 66 U/L (12-78); ANION GAP 6 MEQ/L (8-16); AST/SGOT 57 U/L (7-37); BILIRUBIN,TOTAL 0.3 MG/DL (0.2-1.0); BLOOD UREA NITROGEN 10 MG/DL (7-18); CALCIUM LEVEL 8.7 MG/DL (8.5-10.1); CARBON DIOXIDE LEVEL 26 MEQ/L (21-32); CHLORIDE LEVEL 108 MEQ/L (98-107); CREATININE FOR GFR 0.54 MG/DL (0.55-1.30); GLOMERULAR FILTRATION RATE > 60.0 (>60); GLUCOSE, FASTING 95 MG/DL (70-100); MAGNESIUM LEVEL 2.1 MG/DL (1.8-2.4); POTASSIUM SERUM 2.8 MEQ/L (3.5-5.1); SODIUM LEVEL 140 MEQ/L (136-145); TOTAL PROTEIN 6.8 GM/DL (6.4-8.2)
[2017-07-23] MEDS: TOPIRAMATE (TopAMAX) 25 MG TAB PO (08:22)
[2017-07-23] MEDS: ENOXAPARIN 40 MG/0.4 ML SYRINGE (J1650) SC (08:22)
[2017-07-23] MEDS: POTASSIUM CHLORIDE 10 MEQ SR TABLET PO ×2 (08:23→12:48)
[2017-07-23 15:24] LABS: ANION GAP 8 MEQ/L (8-16); BLOOD UREA NITROGEN 10 MG/DL (7-18); CALCIUM LEVEL 8.6 MG/DL (8.5-10.1); CARBON DIOXIDE LEVEL 25 MEQ/L (21-32); CHLORIDE LEVEL 107 MEQ/L (98-107); CREATININE FOR GFR 0.59 MG/DL (0.55-1.30); GLOMERULAR FILTRATION RATE > 60.0 (>60); GLUCOSE, FASTING 83 MG/DL (70-100); POTASSIUM SERUM 3.5 MEQ/L (3.5-5.1); SODIUM LEVEL 140 MEQ/L (136-145)
== END 2017-07-23 17:15 | disposition home or self-care (01) | DRG 816 ==
LOC: M ED 01:01 → M MS5PR 07-21 14:47 → M ED INP 02:04 → M ICU 02:25
PROC: 5A1945Z Respiratory Ventilation, 24-96 Consecutive Hours (ICD-10-PCS; principal; 2017-07-16)
PROC: 5A1D70Z Performance of Urinary Filtration, Intermittent, Less than 6 Hours Per Day (ICD-10-PCS; 2017-07-16)
PROC: 06HV33Z Insertion of Infusion Device into Left Foot Vein, Percutaneous Approach (ICD-10-PCS; 2017-07-16)
PROC: 0BH17EZ Insertion of Endotracheal Airway into Trachea, Via Natural or Artificial Opening (ICD-10-PCS; 2017-07-18)
DX: T56.891A Toxic effect of other metals, accidental (unintentional), initial encounter (principal); J96.00 Acute respiratory failure, unspecified whether with hypoxia or hypercapnia; J81.0 Acute pulmonary edema; G92 Toxic encephalopathy; F11.10 Opioid abuse, uncomplicated; Z79.899 Other long term (current) drug therapy; F31.89 Other bipolar disorder; E86.0 Dehydration; G40.909 Epilepsy, unspecified, not intractable, without status epilepticus

== ENCOUNTER → 2017-08-15 | Outpatient (REF) | payer OTHER ==
[2017-08-15 13:41] LABS: ALBUMIN 3.9 GM/DL (3.2-5.2); ALBUMIN/GLOBULIN RATIO 1.03 (1.00-1.93); ALKALINE PHOSPHATASE 105 U/L (45-117); ALT/SGPT 17 U/L (12-78); ANION GAP 8 MEQ/L (8-16); AST/SGOT 13 U/L (7-37); BILIRUBIN,TOTAL 0.2 MG/DL (0.2-1.0); BLOOD UREA NITROGEN 9 MG/DL (7-18); CALCIUM LEVEL 8.4 MG/DL (8.5-10.1); CARBON DIOXIDE LEVEL 31 MEQ/L (21-32); CHLORIDE LEVEL 103 MEQ/L (98-107); CREATININE FOR GFR 0.61 MG/DL (0.55-1.30); GLOMERULAR FILTRATION RATE > 60.0 (>60); GLUCOSE, FASTING 59 MG/DL (70-100); LITHIUM LEVEL < 0.20 MEQ/L (0.60-1.20); POTASSIUM SERUM 3.4 MEQ/L (3.5-5.1); SODIUM LEVEL 142 MEQ/L (136-145); TOTAL PROTEIN 7.7 GM/DL (6.4-8.2)
== END ==
LOC: M SFHCPLAZ 10:48
DX: F31.9 Bipolar disorder, unspecified (principal)
CPT/HCPCS: 80178

== ENCOUNTER → 2017-08-30 | Outpatient (CLI) | payer MEDICAID | LOC: M OUTALCOH 08:55 | DX: Z13.9 Encounter for screening, unspecified (principal); F11.20 Opioid dependence, uncomplicated ==

== ENCOUNTER 2017-10-18 16:00 | Outpatient (RCR) | payer MEDICAID | END 2017-11-12 | LOC: M OUTALCOH 10-25 16:00 | DX: F11.20 Opioid dependence, uncomplicated (principal); F17.200 Nicotine dependence, unspecified, uncomplicated ==

== ENCOUNTER 2017-10-26 20:27 | Inpatient (IN) | payer MEDICAID, OTHER ==
[2017-10-26 21:14] LABS: BASO # 0.1 10^3/uL (0.0-0.2); BASO % 0.6 % (0.0-1.0); EOS # 0.2 10^3/uL (0.0-0.50); EOS % 2.3 % (0.0-3.0); HEMATOCRIT 39.4 % (36.0-47.0); HEMOGLOBIN 13.2 g/dl (12.0-15.5); IMMATURE GRANULOCYTE % 0.2 % (0-3.0); LYMPH # 3.4 10^3/uL (1.5-6.5); LYMPH % 34.7 % (24.0-44.0); MEAN CORPUSCULAR HEMOGLOBIN 29.5 pg (27.0-33.0); MEAN CORPUSCULAR HGB CONC 33.5 g/dl (32.0-36.5); MEAN CORPUSCULAR VOLUME 87.9 fl (80.0-96.0); MONO # 0.7 10^3/uL (0.0-0.8); MONO % 6.7 % (0.0-5.0); NEUTROPHILS # 5.4 10^3/uL (1.8-7.7); NEUTROPHILS % 55.5 % (36.0-66.0); PLATELET COUNT, AUTOMATED 272 10^3/uL (150-450); RED BLOOD COUNT 4.48 10^6/uL (4.00-5.40); RED CELL DISTRIBUTION WIDTH 12.7 % (11.5-14.5); WHITE BLOOD COUNT 9.7 10^3/uL (4.0-10.0)
[2017-10-26 21:20] LABS: OSMOLALITY SERUM 294 MOSM/KG (275-295)
[2017-10-26 21:24] LABS: CONTROL LINE HCG INT CTR LINE PRESENT; HCG, SERUM QUALITATIVE NEGATIVE (NEGATIVE)
[2017-10-26 21:32] LABS: ACETAMINOPHEN LEVEL < 2.0 UG/ML (10.0-30.0); ALBUMIN 3.9 GM/DL (3.2-5.2); ALBUMIN/GLOBULIN RATIO 1.11 (1.00-1.93); ALKALINE PHOSPHATASE 89 U/L (45-117); ALT/SGPT 14 U/L (12-78); ANION GAP 9 MEQ/L (8-16); AST/SGOT 19 U/L (7-37); BILIRUBIN,DIRECT < 0.1 MG/DL (0.0-0.2); BILIRUBIN,TOTAL 0.2 MG/DL (0.2-1.0); BLOOD UREA NITROGEN 10 MG/DL (7-18); CALCIUM LEVEL 8.6 MG/DL (8.5-10.1); CARBON DIOXIDE LEVEL 21 MEQ/L (21-32); CHLORIDE LEVEL 115 MEQ/L (98-107); CPK CREATINE PHOSPHOKINASE 109 U/L (26-192); CREATININE FOR GFR 0.77 MG/DL (0.55-1.30); GLOMERULAR FILTRATION RATE > 60.0 (>60); GLUCOSE, FASTING 89 MG/DL (70-100); SALICYLATE LEVEL < 1.7 MG/DL (5.0-30.0); SODIUM LEVEL 145 MEQ/L (136-145); TOTAL PROTEIN 7.4 GM/DL (6.4-8.2)
[2017-10-26] MEDS: NS 1,000 ML IV (22:28)
[2017-10-26 22:45] LABS: KETONE, URINE AUTO RFX NEGATIVE (NEGATIVE); LEUKOCYTE ESTERASE UR AUTO RFX NEGATIVE (NEGATIVE); MUCUS, URINE RFX SMALL (NEGATIVE); NITRITE, URINE AUTO RFX NEGATIVE (NEGATIVE); RBC, URINE AUTO RFX 0 /HPF (0-3); SPECIFIC GRAVITY UR AUTO RFX 1.004 (1.002-1.035); SQUAM EPITHELIAL CELL UR AURFX 0 /HPF (0-6); WBC, URINE AUTO RFX 1 /HPF (0-3)
[2017-10-26] MEDS: NALOXONE INJ 2 MG/2 ML SYRINGE (J2310) IV (22:48)
[2017-10-26] MEDS ORDERED: NALOXONE INJ 0.4 MG/1 ML VIAL (J2310) As Ordered (22:53)
[2017-10-26] MEDS ORDERED: PROPOFOL 1,000 MG/100 ML VIAL As Ordered (22:56)
[2017-10-26] MEDS: ETOMIDATE INJ 20MG/10ML VIAL IV (22:56)
[2017-10-26] MEDS: SUCCINYLCHOLINE INJ 200 MG/10 ML VIAL (J0330) IV (22:58)
[2017-10-26] MEDS: PROPOFOL 1,000 MG in APPROPRIATE DILUENT 1 EA IV ×3 (23:05→23:53)
[2017-10-26 23:17] LABS: AMPHETAMINES LEVEL URINE NEGATIVE (NEGATIVE); BARBITURATES URINE NEGATIVE (NEGATIVE); BENZODIAZEPINES URINE NEGATIVE (NEGATIVE); CANNABINOIDS URINE NEGATIVE (NEGATIVE); COCAINE METABOLITE URINE NEGATIVE (NEGATIVE); METHADONE URINE NEGATIVE (NEGATIVE); OPIATES URINE POSITIVE (NEGATIVE); PHENCYCLIDINE URINE NEGATIVE (NEGATIVE)
[2017-10-27 00:26] LABS: ABG BASE EXCESS -5.6 (-2.0-2.0); ABG HCO3 19.8 MEQ/L (22.0-26.0); ABG O2 SATURATION 99.3 % (95.0-99.0); ABG PARTIAL PRESSURE CO2 38.6 mmHg (35.0-45.0); ABG PARTIAL PRESSURE O2 196.6 mmHg (75.0-100.0); ABG STANDARD HCO3 19.9 MEQ/L (22.0-26.0); ABG pH (ARTERIAL) 7.329 UNITS (7.350-7.450)
[2017-10-27] MEDS ORDERED: ALBUTEROL 90 MCG/ACT 8GM HFA INHALER INH (01:00)
[2017-10-27] MEDS: MIDAZOLAM INJ 2 MG/2 ML VIAL (J2250) IV ×12 (01:37→21:44)
[2017-10-27] MEDS: PROPOFOL 1,000 MG in APPROPRIATE DILUENT 1 EA IV ×5 (01:41→22:44)
[2017-10-27 02:32] LABS: LITHIUM LEVEL < 0.20 MEQ/L (0.60-1.20)
[2017-10-27] MEDS: D5W/0.45% SODIUM CHLORIDE 1,000 ML IV ×3 (03:00→22:45)
[2017-10-27] MEDS: fentaNYL CITRATE 1,000 MCG in NS 80 ML IV (04:31)
[2017-10-27] MEDS: PANTOPRAZOLE 40MG INJ (PROTONIX) (C9113) IV (08:32)
[2017-10-27] MEDS: ENOXAPARIN 40 MG/0.4 ML SYRINGE (J1650) SC (08:32)
[2017-10-27] MEDS: CHLORHEXIDINE ORAL RINSE 0.12%/15ML 120ML BOTTLE MT ×2 (08:33→21:00)
[2017-10-27] MEDS ORDERED: SUCCINYLCHOLINE 100 MG/5 ML SYRINGE (J0330) (08:35)
[2017-10-27 08:57] LABS: ABG BASE EXCESS -6.2 (-2.0-2.0); ABG HCO3 18.5 MEQ/L (22.0-26.0); ABG O2 SATURATION 99.1 % (95.0-99.0); ABG PARTIAL PRESSURE CO2 34.2 mmHg (35.0-45.0); ABG PARTIAL PRESSURE O2 138.5 mmHg (75.0-100.0); ABG STANDARD HCO3 19.4 MEQ/L (22.0-26.0); ABG TOTAL CO2 19.5 MEQ/L (22.0-29.0); ABG pH (ARTERIAL) 7.351 UNITS (7.350-7.450)
[2017-10-27 09:50] LABS: ACETAMINOPHEN LEVEL < 2.0 UG/ML (10.0-30.0)
[2017-10-27 09:52] LABS: CPK CREATINE PHOSPHOKINASE 63 U/L (26-192)
[2017-10-27] MEDS: NS 500 ML IV (10:15)
[2017-10-27 11:01] LABS: HEMATOCRIT 38.6 % (36.0-47.0); HEMOGLOBIN 12.8 g/dl (12.0-15.5); MEAN CORPUSCULAR HEMOGLOBIN 29.6 pg (27.0-33.0); MEAN CORPUSCULAR HGB CONC 33.2 g/dl (32.0-36.5); MEAN CORPUSCULAR VOLUME 89.1 fl (80.0-96.0); PLATELET COUNT, AUTOMATED 271 10^3/uL (150-450); RED BLOOD COUNT 4.33 10^6/uL (4.00-5.40); RED CELL DISTRIBUTION WIDTH 13.2 % (11.5-14.5); WHITE BLOOD COUNT 9.2 10^3/uL (4.0-10.0)
[2017-10-27 11:35] LABS: ANION GAP 7 MEQ/L (8-16); BLOOD UREA NITROGEN 8 MG/DL (7-18); CALCIUM LEVEL 8.3 MG/DL (8.5-10.1); CARBON DIOXIDE LEVEL 22 MEQ/L (21-32); CHLORIDE LEVEL 116 MEQ/L (98-107); CREATININE FOR GFR 0.65 MG/DL (0.55-1.30); GLOMERULAR FILTRATION RATE > 60.0 (>60); GLUCOSE, FASTING 106 MG/DL (70-100); MAGNESIUM LEVEL 2.2 MG/DL (1.8-2.4); PHOSPHORUS LEVEL 3.3 MG/DL (2.5-4.9); POTASSIUM SERUM 3.8 MEQ/L (3.5-5.1); SODIUM LEVEL 145 MEQ/L (136-145)
[2017-10-27] MEDS: NS 1,000 ML IV (12:30)
[2017-10-27 14:15] LABS: KETONE, URINE AUTO RFX NEGATIVE (NEGATIVE); MUCUS, URINE RFX SMALL (NEGATIVE); NITRITE, URINE AUTO RFX NEGATIVE (NEGATIVE); RBC, URINE AUTO RFX 7 /HPF (0-3); SPECIFIC GRAVITY UR AUTO RFX 1.016 (1.002-1.035); SQUAM EPITHELIAL CELL UR AURFX 0 /HPF (0-6); WBC, URINE AUTO RFX 5 /HPF (0-3)
[2017-10-27 14:18] LABS: LEUKOCYTE ESTERASE UR AUTO RFX TRACE (NEGATIVE)
[2017-10-27] MEDS: ACETAMINOPHEN 325 MG/10.15 ML UDC GT (15:17)
[2017-10-27] MEDS ORDERED: REFRIGERATOR IV KEYS XX (19:45)
[2017-10-27] MEDS ORDERED: MIDAZOLAM INJ 2 MG/2 ML VIAL (J2250) As Ordered ×5 (20:29→20:50)
[2017-10-27] MEDS ORDERED: ROCURONIUM BROMIDE 50 MG/5 ML VIAL As Ordered (21:40)
[2017-10-27] MEDS: MIDAZOLAM HCL 100 MG in D5W 80 ML IV (21:41)
[2017-10-27] MEDS: ROCURONIUM BROMIDE 50 MG/5 ML VIAL IV (21:45)
[2017-10-27] MEDS: PROPOFOL 200 MG/20 ML VIAL IV (21:45)
[2017-10-27 22:10] LABS: BASO % 0.2 % (0.0-1.0); EOS % 0.1 % (0.0-3.0); HEMATOCRIT 37.4 % (36.0-47.0); HEMOGLOBIN 12.2 g/dl (12.0-15.5); IMMATURE GRANULOCYTE % 0.4 % (0-3.0); LYMPH # 1.3 10^3/uL (1.5-6.5); LYMPH % 8.2 % (24.0-44.0); MEAN CORPUSCULAR HEMOGLOBIN 29.5 pg (27.0-33.0); MEAN CORPUSCULAR HGB CONC 32.6 g/dl (32.0-36.5); MEAN CORPUSCULAR VOLUME 90.3 fl (80.0-96.0); MONO # 0.8 10^3/uL (0.0-0.8); MONO % 5.2 % (0.0-5.0); NEUTROPHILS # 13.8 10^3/uL (1.8-7.7); NEUTROPHILS % 85.9 % (36.0-66.0); PLATELET COUNT, AUTOMATED 210 10^3/uL (150-450); RED BLOOD COUNT 4.14 10^6/uL (4.00-5.40); RED CELL DISTRIBUTION WIDTH 13.3 % (11.5-14.5)
[2017-10-27] MEDS: cefTRIAXone SOD 1 GM in D5W MINI-BAG PLUS 50 ML IV (22:14)
[2017-10-27 22:22] LABS: INR 1.07; PARTIAL THROMBOPLASTIN TIME 33.7 SECONDS (25.4-37.6)
[2017-10-27 22:41] LABS: ALBUMIN 3.4 GM/DL (3.2-5.2); ALBUMIN/GLOBULIN RATIO 1.06 (1.00-1.93); ALKALINE PHOSPHATASE 75 U/L (45-117); ALT/SGPT 11 U/L (12-78); ANION GAP 8 MEQ/L (8-16); AST/SGOT 19 U/L (7-37); BILIRUBIN,TOTAL 0.4 MG/DL (0.2-1.0); BLOOD UREA NITROGEN 5 MG/DL (7-18); CALCIUM LEVEL 7.8 MG/DL (8.5-10.1); CARBON DIOXIDE LEVEL 22 MEQ/L (21-32); CHLORIDE LEVEL 114 MEQ/L (98-107); CPK CREATINE PHOSPHOKINASE 80 U/L (26-192); GLOMERULAR FILTRATION RATE > 60.0 (>60); GLUCOSE, FASTING 117 MG/DL (70-100); POTASSIUM SERUM 3.1 MEQ/L (3.5-5.1); SODIUM LEVEL 144 MEQ/L (136-145); TOTAL PROTEIN 6.6 GM/DL (6.4-8.2)
[2017-10-27] MEDS: AZITHROMYCIN INJ 500 MG, VIAL MATE ADAPTER 1 EACH in D5W 250 ML IV (23:08)
[2017-10-28] MEDS: PROPOFOL 1,000 MG in APPROPRIATE DILUENT 1 EA IV ×4 (02:13→17:44)
[2017-10-28] MEDS: fentaNYL CITRATE 1,000 MCG in NS 80 ML IV ×2 (03:13→22:39)
[2017-10-28 05:25] LABS: BASO % 0.3 % (0.0-1.0); EOS # 0.1 10^3/uL (0.0-0.50); HEMATOCRIT 31.8 % (36.0-47.0); HEMOGLOBIN 10.7 g/dl (12.0-15.5); IMMATURE GRANULOCYTE % 0.4 % (0-3.0); LYMPH # 2.6 10^3/uL (1.5-6.5); LYMPH % 20.5 % (24.0-44.0); MEAN CORPUSCULAR HEMOGLOBIN 29.8 pg (27.0-33.0); MEAN CORPUSCULAR HGB CONC 33.6 g/dl (32.0-36.5); MEAN CORPUSCULAR VOLUME 88.6 fl (80.0-96.0); MONO % 7.9 % (0.0-5.0); NEUTROPHILS % 69.9 % (36.0-66.0); PLATELET COUNT, AUTOMATED 212 10^3/uL (150-450); RED BLOOD COUNT 3.59 10^6/uL (4.00-5.40); RED CELL DISTRIBUTION WIDTH 13.2 % (11.5-14.5); WHITE BLOOD COUNT 12.8 10^3/uL (4.0-10.0)
[2017-10-28 05:34] LABS: ABG BASE EXCESS -0.9 (-2.0-2.0); ABG HCO3 22.5 MEQ/L (22.0-26.0); ABG O2 SATURATION 99.2 % (95.0-99.0); ABG PARTIAL PRESSURE CO2 32.9 mmHg (35.0-45.0); ABG PARTIAL PRESSURE O2 138.4 mmHg (75.0-100.0); ABG STANDARD HCO3 23.8 MEQ/L (22.0-26.0); ABG TOTAL CO2 23.5 MEQ/L (22.0-29.0); ABG pH (ARTERIAL) 7.452 UNITS (7.350-7.450)
[2017-10-28 05:58] LABS: ANION GAP 9 MEQ/L (8-16); BLOOD UREA NITROGEN 5 MG/DL (7-18); CALCIUM LEVEL 7.5 MG/DL (8.5-10.1); CARBON DIOXIDE LEVEL 23 MEQ/L (21-32); CHLORIDE LEVEL 113 MEQ/L (98-107); CREATININE FOR GFR 0.45 MG/DL (0.55-1.30); GLOMERULAR FILTRATION RATE > 60.0 (>60); GLUCOSE, FASTING 101 MG/DL (70-100); MAGNESIUM LEVEL 1.8 MG/DL (1.8-2.4); PHOSPHORUS LEVEL 1.5 MG/DL (2.5-4.9); POTASSIUM SERUM 2.9 MEQ/L (3.5-5.1); SODIUM LEVEL 145 MEQ/L (136-145)
[2017-10-28] MEDS ORDERED: KCL 10MEQ/100ML SWI (KRUN) 10 MEQ in APPROPRIATE DILUENT 1 EA IV (06:30)
[2017-10-28] MEDS: KCL 20MEQ IN 100ML SWI (KRUN) 20 MEQ in APPROPRIATE DILUENT 1 EA IV ×2 (06:47→07:47)
[2017-10-28] MEDS: cefTRIAXone SOD 1 GM in D5W MINI-BAG PLUS 50 ML IV ×2 (07:47→20:20)
[2017-10-28] MEDS: D5W/0.45% SODIUM CHLORIDE 1,000 ML IV ×2 (07:49→20:20)
[2017-10-28] MEDS: MAG SULF 1GM/100ML (MAG RUN) 1 GM in APPROPRIATE DILUENT 1 EA IV (08:48)
[2017-10-28] MEDS: ENOXAPARIN 40 MG/0.4 ML SYRINGE (J1650) SC (08:48)
[2017-10-28] MEDS: PANTOPRAZOLE 40MG INJ (PROTONIX) (C9113) IV (08:48)
[2017-10-28] MEDS: POTASSIUM PHOSPHATE INJ 18 MMOL in D5W 250 ML IV (10:16)
[2017-10-28 11:19] LABS: TRIGLYCERIDES LEVEL 58 MG/DL (<150)
[2017-10-28 11:25] LABS: IONIZED CALCIUM 4.5 MG/DL (4.5-5.3)
[2017-10-28 12:00] LABS: ANION GAP 6 MEQ/L (8-16); BLOOD UREA NITROGEN 5 MG/DL (7-18); CALCIUM LEVEL 7.8 MG/DL (8.5-10.1); CARBON DIOXIDE LEVEL 25 MEQ/L (21-32); CHLORIDE LEVEL 113 MEQ/L (98-107); CREATININE FOR GFR 0.54 MG/DL (0.55-1.30); GLOMERULAR FILTRATION RATE > 60.0 (>60); GLUCOSE, FASTING 86 MG/DL (70-100); MAGNESIUM LEVEL 2.1 MG/DL (1.8-2.4); POTASSIUM SERUM 3.9 MEQ/L (3.5-5.1); SODIUM LEVEL 144 MEQ/L (136-145)
[2017-10-28] MEDS: CHLORHEXIDINE ORAL RINSE 0.12%/15ML 120ML BOTTLE MT ×2 (12:00→21:20)
[2017-10-28] MEDS: MIDAZOLAM HCL 100 MG in D5W 80 ML IV (15:27)
[2017-10-28 19:13] LABS: BEDSIDE GLUCOSE 66 MG/DL (70-105)
[2017-10-28] MEDS ORDERED: DEXTROSE 50% 50 ML SYRINGE IV (19:30)
[2017-10-28] MEDS ORDERED: GLUCOSE 4 GM CHEW TABLET PO (19:30)
[2017-10-28] MEDS ORDERED: GLUCAGON FOR INJ 1 MG VIAL (J1610) SC (19:30)
[2017-10-28] MEDS: ACETAMINOPHEN 325 MG/10.15 ML UDC GT (20:21)
[2017-10-28] MEDS: AZITHROMYCIN INJ 500 MG, VIAL MATE ADAPTER 1 EACH in D5W 250 ML IV (21:16)
[2017-10-29 00:08] LABS: BEDSIDE GLUCOSE 109 MG/DL (70-105)
[2017-10-29] MEDS: PROPOFOL 1,000 MG in APPROPRIATE DILUENT 1 EA IV ×3 (00:58→12:05)
[2017-10-29 05:22] LABS: BASO % 0.6 % (0.0-1.0); EOS # 0.2 10^3/uL (0.0-0.50); EOS % 3.1 % (0.0-3.0); HEMATOCRIT 32.8 % (36.0-47.0); HEMOGLOBIN 10.9 g/dl (12.0-15.5); IMMATURE GRANULOCYTE % 0.1 % (0-3.0); LYMPH # 2.7 10^3/uL (1.5-6.5); LYMPH % 38.8 % (24.0-44.0); MEAN CORPUSCULAR HEMOGLOBIN 29.5 pg (27.0-33.0); MEAN CORPUSCULAR HGB CONC 33.2 g/dl (32.0-36.5); MEAN CORPUSCULAR VOLUME 88.9 fl (80.0-96.0); MONO # 0.6 10^3/uL (0.0-0.8); MONO % 8.9 % (0.0-5.0); NEUTROPHILS # 3.4 10^3/uL (1.8-7.7); NEUTROPHILS % 48.5 % (36.0-66.0); PLATELET COUNT, AUTOMATED 216 10^3/uL (150-450); RED BLOOD COUNT 3.69 10^6/uL (4.00-5.40); RED CELL DISTRIBUTION WIDTH 13.1 % (11.5-14.5)
[2017-10-29 05:39] LABS: ABG BASE EXCESS -1.2 (-2.0-2.0); ABG HCO3 22.7 MEQ/L (22.0-26.0); ABG O2 SATURATION 98.3 % (95.0-99.0); ABG PARTIAL PRESSURE O2 106.9 mmHg (75.0-100.0); ABG STANDARD HCO3 23.5 MEQ/L (22.0-26.0); ABG TOTAL CO2 23.7 MEQ/L (22.0-29.0); ABG pH (ARTERIAL) 7.429 UNITS (7.350-7.450)
[2017-10-29 05:58] LABS: ANION GAP 7 MEQ/L (8-16); BLOOD UREA NITROGEN 5 MG/DL (7-18); CALCIUM LEVEL 7.7 MG/DL (8.5-10.1); CARBON DIOXIDE LEVEL 24 MEQ/L (21-32); CHLORIDE LEVEL 112 MEQ/L (98-107); CREATININE FOR GFR 0.43 MG/DL (0.55-1.30); GLOMERULAR FILTRATION RATE > 60.0 (>60); GLUCOSE, FASTING 86 MG/DL (70-100); MAGNESIUM LEVEL 2.1 MG/DL (1.8-2.4); PHOSPHORUS LEVEL 3.9 MG/DL (2.5-4.9); POTASSIUM SERUM 3.3 MEQ/L (3.5-5.1); SODIUM LEVEL 143 MEQ/L (136-145)
[2017-10-29] MEDS: KCL 10MEQ/100ML SWI (KRUN) 10 MEQ in APPROPRIATE DILUENT 1 EA IV ×3 (06:45→09:33)
[2017-10-29] MEDS: cefTRIAXone SOD 1 GM in D5W MINI-BAG PLUS 50 ML IV ×2 (08:18→19:53)
[2017-10-29] MEDS: MIDAZOLAM HCL 100 MG in D5W 80 ML IV (08:25)
[2017-10-29] MEDS: D5W/0.45% SODIUM CHLORIDE 1,000 ML IV ×2 (08:32→21:11)
[2017-10-29] MEDS ORDERED: POTASSIUM CHLORIDE 10 MEQ SR TABLET PO (09:00)
[2017-10-29] MEDS: DOCUSATE SOD LIQ 100MG/10ML UDC NG ×2 (09:53→21:10)
[2017-10-29] MEDS: PANTOPRAZOLE 40MG INJ (PROTONIX) (C9113) IV (09:53)
[2017-10-29] MEDS: ENOXAPARIN 40 MG/0.4 ML SYRINGE (J1650) SC (09:54)
[2017-10-29] MEDS: CHLORHEXIDINE ORAL RINSE 0.12%/15ML 120ML BOTTLE MT ×2 (09:54→21:00)
[2017-10-29] MEDS: POTASSIUM CHLORIDE 10% LIQ 20 MEQ/15 ML UDC NG ×2 (10:05→21:10)
[2017-10-29] MEDS: SENNA SYRUP 15 ML UDC NG (12:14)
[2017-10-29 13:17] LABS: BEDSIDE GLUCOSE 79 MG/DL (70-105)
[2017-10-29] MEDS: dexmedeTOMidine 200 MCG in APPROPRIATE DILUENT 1 EA IV ×2 (14:35→18:58)
[2017-10-29] MEDS: fentaNYL CITRATE 1,000 MCG in NS 80 ML IV (18:02)
[2017-10-29 18:19] LABS: BEDSIDE GLUCOSE 102 MG/DL (70-105)
[2017-10-29] MEDS: AZITHROMYCIN INJ 500 MG, VIAL MATE ADAPTER 1 EACH in D5W 250 ML IV (21:09)
[2017-10-29] MEDS: ACETAMINOPHEN 325 MG/10.15 ML UDC GT (21:12)
[2017-10-29] MEDS: MIDAZOLAM INJ 2 MG/2 ML VIAL (J2250) IV (21:33)
[2017-10-30 00:32] LABS: BEDSIDE GLUCOSE 90 MG/DL (70-105)
[2017-10-30] MEDS: PROPOFOL 1,000 MG in APPROPRIATE DILUENT 1 EA IV ×2 (01:14→05:52)
[2017-10-30] MEDS: MIDAZOLAM INJ 2 MG/2 ML VIAL (J2250) IV ×2 (01:14→04:05)
[2017-10-30] MEDS: dexmedeTOMidine 200 MCG in APPROPRIATE DILUENT 1 EA IV (02:24)
[2017-10-30 05:14] LABS: BASO % 0.6 % (0.0-1.0); EOS # 0.2 10^3/uL (0.0-0.50); EOS % 5.2 % (0.0-3.0); HEMATOCRIT 29.1 % (36.0-47.0); HEMOGLOBIN 9.7 g/dl (12.0-15.5); LYMPH % 43.1 % (24.0-44.0); MEAN CORPUSCULAR HEMOGLOBIN 29.7 pg (27.0-33.0); MEAN CORPUSCULAR HGB CONC 33.3 g/dl (32.0-36.5); MONO # 0.4 10^3/uL (0.0-0.8); MONO % 7.7 % (0.0-5.0); NEUTROPHILS % 43.4 % (36.0-66.0); PLATELET COUNT, AUTOMATED 200 10^3/uL (150-450); RED BLOOD COUNT 3.27 10^6/uL (4.00-5.40); RED CELL DISTRIBUTION WIDTH 12.9 % (11.5-14.5); WHITE BLOOD COUNT 4.7 10^3/uL (4.0-10.0)
[2017-10-30 05:49] LABS: ANION GAP 12 MEQ/L (8-16); BLOOD UREA NITROGEN 4 MG/DL (7-18); CALCIUM LEVEL 8.2 MG/DL (8.5-10.1); CARBON DIOXIDE LEVEL 21 MEQ/L (21-32); CHLORIDE LEVEL 112 MEQ/L (98-107); CREATININE FOR GFR 0.37 MG/DL (0.55-1.30); GLOMERULAR FILTRATION RATE > 60.0 (>60); GLUCOSE, FASTING 94 MG/DL (70-100); PHOSPHORUS LEVEL 3.9 MG/DL (2.5-4.9); POTASSIUM SERUM 3.8 MEQ/L (3.5-5.1); SODIUM LEVEL 145 MEQ/L (136-145)
[2017-10-30 06:14] LABS: ABG BASE EXCESS -3.8 (-2.0-2.0); ABG HCO3 19.7 MEQ/L (22.0-26.0); ABG O2 SATURATION 98.2 % (95.0-99.0); ABG PARTIAL PRESSURE CO2 30.5 mmHg (35.0-45.0); ABG PARTIAL PRESSURE O2 109.3 mmHg (75.0-100.0); ABG STANDARD HCO3 21.3 MEQ/L (22.0-26.0); ABG TOTAL CO2 20.6 MEQ/L (22.0-29.0); ABG pH (ARTERIAL) 7.428 UNITS (7.350-7.450)
[2017-10-30 06:29] LABS: BEDSIDE GLUCOSE 100 MG/DL (70-105)
[2017-10-30] MEDS: cefTRIAXone SOD 1 GM in D5W MINI-BAG PLUS 50 ML IV ×2 (08:15→21:05)
[2017-10-30] MEDS ORDERED: methylPREDNISolone INJ 125 MG/2 ML VIAL (J2930) As Ordered (08:58)
[2017-10-30] MEDS: SENNA SYRUP 15 ML UDC NG ×2 (09:00→09:43)
[2017-10-30] MEDS: POTASSIUM CHLORIDE 10% LIQ 20 MEQ/15 ML UDC NG ×3 (09:00→21:05)
[2017-10-30] MEDS: DOCUSATE SOD LIQ 100MG/10ML UDC NG ×3 (09:00→21:05)
[2017-10-30] MEDS: methylPREDNISolone INJ 125 MG/2 ML VIAL (J2930) IV (09:00)
[2017-10-30] MEDS: CHLORHEXIDINE ORAL RINSE 0.12%/15ML 120ML BOTTLE MT (09:43)
[2017-10-30] MEDS: PANTOPRAZOLE 40MG INJ (PROTONIX) (C9113) IV (09:43)
[2017-10-30] MEDS: ENOXAPARIN 40 MG/0.4 ML SYRINGE (J1650) SC (09:43)
[2017-10-30] MEDS: RACEPINEPHrine 2.25 % UD INHA NEB (10:00)
[2017-10-30] MEDS: GLYCOPYRROLATE INJ 0.2 MG/ML 2 ML VIAL IV (10:09)
[2017-10-30 10:23] LABS: ABG BASE EXCESS -2.4 (-2.0-2.0); ABG HCO3 20.9 MEQ/L (22.0-26.0); ABG O2 SATURATION 95.9 % (95.0-99.0); ABG PARTIAL PRESSURE CO2 31.4 mmHg (35.0-45.0); ABG PARTIAL PRESSURE O2 78.8 mmHg (75.0-100.0); ABG SITE RT RADIAL; ABG STANDARD HCO3 22.4 MEQ/L (22.0-26.0); ABG TOTAL CO2 21.9 MEQ/L (22.0-29.0); ABG pH (ARTERIAL) 7.442 UNITS (7.350-7.450)
[2017-10-30] MEDS: D5W/0.45% SODIUM CHLORIDE 1,000 ML IV (11:03)
[2017-10-30 12:14] LABS: BEDSIDE GLUCOSE 83 MG/DL (70-105)
[2017-10-30] MEDS: ALBUTEROL SULFATE 2.5 MG/0.5 ML INH NEB SOLN NEB ×4 (12:51→23:47)
[2017-10-30] MEDS ORDERED: SODIUM CHLORIDE 0.9% INJ 10 ML SYR IV (15:15)
[2017-10-30] MEDS: SODIUM CHLORIDE 0.9% INJ 10 ML SYR IV (21:06)
[2017-10-30] MEDS: fentaNYL 100 MCG/2 ML INJECTION (J3010) IV (21:24)
[2017-10-31] MEDS: LORazepam 0.5 MG TAB PO ×3 (00:32→17:38)
[2017-10-31] MEDS: fentaNYL 100 MCG/2 ML INJECTION (J3010) IV ×3 (00:32→04:17)
[2017-10-31] MEDS: D5W/0.45% SODIUM CHLORIDE 1,000 ML IV ×2 (00:50→15:15)
[2017-10-31] MEDS: ALBUTEROL SULFATE 2.5 MG/0.5 ML INH NEB SOLN NEB ×2 (04:00→20:00)
[2017-10-31] MEDS: SODIUM CHLORIDE 0.9% INJ 10 ML SYR IV ×3 (06:58→21:11)
[2017-10-31] MEDS: PANTOPRAZOLE 40MG INJ (PROTONIX) (C9113) IV (09:01)
[2017-10-31] MEDS: ENOXAPARIN 40 MG/0.4 ML SYRINGE (J1650) SC (09:01)
[2017-10-31] MEDS: POTASSIUM CHLORIDE 10% LIQ 20 MEQ/15 ML UDC NG ×2 (09:01→20:04)
[2017-10-31] MEDS: cefTRIAXone SOD 1 GM in D5W MINI-BAG PLUS 50 ML IV (09:01)
[2017-10-31] MEDS: DOCUSATE SOD LIQ 100MG/10ML UDC NG ×2 (09:01→20:09)
[2017-10-31 09:25] LABS: BASO % 0.7 % (0.0-1.0); EOS # 0.1 10^3/uL (0.0-0.50); HEMATOCRIT 29.8 % (36.0-47.0); HEMOGLOBIN 9.9 g/dl (12.0-15.5); IMMATURE GRANULOCYTE % 0.2 % (0-3.0); LYMPH # 1.2 10^3/uL (1.5-6.5); LYMPH % 30.6 % (24.0-44.0); MEAN CORPUSCULAR HEMOGLOBIN 29.4 pg (27.0-33.0); MEAN CORPUSCULAR HGB CONC 33.2 g/dl (32.0-36.5); MEAN CORPUSCULAR VOLUME 88.4 fl (80.0-96.0); MONO # 0.3 10^3/uL (0.0-0.8); MONO % 7.7 % (0.0-5.0); NEUTROPHILS # 2.4 10^3/uL (1.8-7.7); NEUTROPHILS % 58.8 % (36.0-66.0); PLATELET COUNT, AUTOMATED 205 10^3/uL (150-450); RED BLOOD COUNT 3.37 10^6/uL (4.00-5.40); RED CELL DISTRIBUTION WIDTH 12.4 % (11.5-14.5)
[2017-10-31 09:47] LABS: ANION GAP 9 MEQ/L (8-16); BLOOD UREA NITROGEN 9 MG/DL (7-18); CALCIUM LEVEL 8.3 MG/DL (8.5-10.1); CARBON DIOXIDE LEVEL 25 MEQ/L (21-32); CHLORIDE LEVEL 112 MEQ/L (98-107); CREATININE FOR GFR 0.37 MG/DL (0.55-1.30); GLOMERULAR FILTRATION RATE > 60.0 (>60); GLUCOSE, FASTING 104 MG/DL (70-100); MAGNESIUM LEVEL 1.9 MG/DL (1.8-2.4); PHOSPHORUS LEVEL 3.1 MG/DL (2.5-4.9); POTASSIUM SERUM 3.6 MEQ/L (3.5-5.1); SODIUM LEVEL 146 MEQ/L (136-145)
[2017-10-31] MEDS: AZITHROMYCIN 250 MG TAB PO (11:08)
[2017-10-31] MEDS: SENNA SYRUP 15 ML UDC NG (11:09)
[2017-10-31] MEDS: BUPRENORPHINE/NALOXONE 2-0.5MG SUBLINGUAL TABLET(SUBOXONE) SL (11:09)
[2017-10-31] MEDS ORDERED: PILL CRUSHER/CUTTER 1 EACH XX (12:30)
[2017-10-31 14:17] LABS: ETHYL ALCOHOL (ETHANOL) < 0.003 % (0.000-0.010)
[2017-10-31] MEDS: METOCLOPRAMIDE 5 MG TAB PO (21:00)
[2017-11-01 01:46] LABS: KETONE, URINE AUTO RFX NEGATIVE (NEGATIVE); LEUKOCYTE ESTERASE UR AUTO RFX NEGATIVE (NEGATIVE); MUCUS, URINE RFX SMALL (NEGATIVE); NITRITE, URINE AUTO RFX NEGATIVE (NEGATIVE); RBC, URINE AUTO RFX 149 /HPF (0-3); SPECIFIC GRAVITY UR AUTO RFX 1.013 (1.002-1.035); SQUAM EPITHELIAL CELL UR AURFX 2 /HPF (0-6); WBC, URINE AUTO RFX 1 /HPF (0-3)
[2017-11-01] MEDS: ALBUTEROL SULFATE 2.5 MG/0.5 ML INH NEB SOLN NEB ×2 (03:31)
[2017-11-01] MEDS: SODIUM CHLORIDE 0.9% INJ 10 ML SYR IV ×3 (05:32→22:00)
[2017-11-01 05:58] LABS: CONTROL LINE HCG INT CTR LINE PRESENT; HCG, SERUM QUALITATIVE NEGATIVE (NEGATIVE)
[2017-11-01] MEDS: D5W/0.45% SODIUM CHLORIDE 1,000 ML IV (06:17)
[2017-11-01 07:22] LABS: HEMATOCRIT 31.5 % (36.0-47.0); HEMOGLOBIN 10.5 g/dl (12.0-15.5); MEAN CORPUSCULAR HEMOGLOBIN 28.8 pg (27.0-33.0); MEAN CORPUSCULAR HGB CONC 33.3 g/dl (32.0-36.5); MEAN CORPUSCULAR VOLUME 86.5 fl (80.0-96.0); PLATELET COUNT, AUTOMATED 246 10^3/uL (150-450); RED BLOOD COUNT 3.64 10^6/uL (4.00-5.40); RED CELL DISTRIBUTION WIDTH 11.9 % (11.5-14.5); WHITE BLOOD COUNT 4.8 10^3/uL (4.0-10.0)
[2017-11-01 07:47] LABS: ANION GAP 9 MEQ/L (8-16); BLOOD UREA NITROGEN 9 MG/DL (7-18); CALCIUM LEVEL 8.5 MG/DL (8.5-10.1); CARBON DIOXIDE LEVEL 25 MEQ/L (21-32); CHLORIDE LEVEL 108 MEQ/L (98-107); CREATININE FOR GFR 0.36 MG/DL (0.55-1.30); GLOMERULAR FILTRATION RATE > 60.0 (>60); GLUCOSE, FASTING 98 MG/DL (70-100); POTASSIUM SERUM 3.6 MEQ/L (3.5-5.1); SODIUM LEVEL 142 MEQ/L (136-145)
[2017-11-01] MEDS ORDERED: ALBUTEROL 90 MCG/ACT 8GM HFA INHALER INH (08:45)
[2017-11-01] MEDS: BUPRENORPHINE/NALOXONE 2-0.5MG SUBLINGUAL TABLET(SUBOXONE) SL (09:38)
[2017-11-01] MEDS: LORazepam 0.5 MG TAB PO ×2 (09:38→17:41)
[2017-11-01] MEDS: AZITHROMYCIN 250 MG TAB PO (09:38)
[2017-11-01] MEDS: ENOXAPARIN 40 MG/0.4 ML SYRINGE (J1650) SC (09:39)
[2017-11-01] MEDS: DOCUSATE SOD LIQ 100MG/10ML UDC NG ×2 (09:39→20:07)
[2017-11-01] MEDS: SENNA SYRUP 15 ML UDC NG (09:39)
[2017-11-01] MEDS: POTASSIUM CHLORIDE 10% LIQ 20 MEQ/15 ML UDC NG ×2 (09:39→20:10)
[2017-11-01] MEDS: METOCLOPRAMIDE 5 MG TAB PO ×2 (09:39→20:18)
[2017-11-01 10:33] LABS: PHOSPHOLIPIDS LEVEL 159 mg/dL (150-250)
[2017-11-02] MEDS: LORazepam 0.5 MG TAB PO (04:05)
[2017-11-02] MEDS: SODIUM CHLORIDE 0.9% INJ 10 ML SYR IV (05:09)
[2017-11-02 05:18] LABS: HEMATOCRIT 31.8 % (36.0-47.0); MEAN CORPUSCULAR HEMOGLOBIN 29.3 pg (27.0-33.0); MEAN CORPUSCULAR HGB CONC 34.6 g/dl (32.0-36.5); MEAN CORPUSCULAR VOLUME 84.6 fl (80.0-96.0); PLATELET COUNT, AUTOMATED 266 10^3/uL (150-450); RED BLOOD COUNT 3.76 10^6/uL (4.00-5.40); RED CELL DISTRIBUTION WIDTH 11.9 % (11.5-14.5); WHITE BLOOD COUNT 5.8 10^3/uL (4.0-10.0)
[2017-11-02 06:11] LABS: ANION GAP 10 MEQ/L (8-16); BLOOD UREA NITROGEN 12 MG/DL (7-18); CALCIUM LEVEL 8.7 MG/DL (8.5-10.1); CARBON DIOXIDE LEVEL 25 MEQ/L (21-32); CHLORIDE LEVEL 109 MEQ/L (98-107); CREATININE FOR GFR 0.47 MG/DL (0.55-1.30); GLOMERULAR FILTRATION RATE > 60.0 (>60); GLUCOSE, FASTING 107 MG/DL (70-100); POTASSIUM SERUM 3.6 MEQ/L (3.5-5.1); SODIUM LEVEL 144 MEQ/L (136-145)
[2017-11-02] MEDS: METOCLOPRAMIDE 5 MG TAB PO (09:00)
[2017-11-02] MEDS: BUPRENORPHINE/NALOXONE 8-2MG SUBLINGUAL TABLET(SUBOXONE) SL (09:49)
[2017-11-02] MEDS: AZITHROMYCIN 250 MG TAB PO (09:49)
[2017-11-02] MEDS: ENOXAPARIN 40 MG/0.4 ML SYRINGE (J1650) SC (09:50)
[2017-11-03] MEDS ORDERED: BUPRENORPHINE/NALOXONE 8-2MG SUBLINGUAL TABLET(SUBOXONE) SL (09:00)
== END 2017-11-02 14:44 | DRG 812 ==
LOC: M ED 20:27 → M PCU 10-31 07:49 → M ICU 10-27 01:03
PROC: 5A1945Z Respiratory Ventilation, 24-96 Consecutive Hours (ICD-10-PCS; principal; 2017-10-27)
PROC: 02HV33Z Insertion of Infusion Device into Superior Vena Cava, Percutaneous Approach (ICD-10-PCS; 2017-10-27)
DX: T42.8X2A Poisoning by antiparkinsonism drugs and other central muscle-tone depressants, intentional self-harm, initial encounter (principal); J96.00 Acute respiratory failure, unspecified whether with hypoxia or hypercapnia; G93.41 Metabolic encephalopathy; I48.91 Unspecified atrial fibrillation; E83.42 Hypomagnesemia; E83.39 Other disorders of phosphorus metabolism; G40.909 Epilepsy, unspecified, not intractable, without status epilepticus; F31.9 Bipolar disorder, unspecified; Y92.009 Unspecified place in unspecified non-institutional (private) residence as the place of occurrence of the external cause; F11.10 Opioid abuse, uncomplicated; Z79.899 Other long term (current) drug therapy; D72.829 Elevated white blood cell count, unspecified; R00.0 Tachycardia, unspecified; E87.6 Hypokalemia; R68.0 Hypothermia, not associated with low environmental temperature; F41.9 Anxiety disorder, unspecified

== ENCOUNTER 2017-11-02 14:50 | Inpatient (IN) | payer MEDICAID ==
[~2017-11-02 14:50] MED LIST changes: +ACETAMINOPHEN TAB 650MG DOSE (2X325MG) PO; +ALBUTEROL 90 MCG/ACT 8GM HFA INHALER INH; -AMMONIA AROMATIC INHALANT (FLOOR STOCK) As Ordered; -LORazepam 2 MG/ML VIAL (J2060) As Ordered; +MAALOX 30 ML SUSP *UDC PO; +MOM 30ML SUSPENSION UDC PO; +OLANZapine 5 MG TAB PO; -PROPOFOL 1,000 MG/100 ML VIAL As Ordered; +traZODone 50 MG TAB PO
[2017-11-02] MEDS ORDERED: PILL CRUSHER/CUTTER 1 EACH XX (16:00)
[2017-11-02] MEDS: DOCUSATE SODIUM 100 MG CAP PO (21:22)
[2017-11-02] MEDS: QUEtiapine FUMARATE 50 MG TAB PO (21:22)
[2017-11-02] MEDS: METOCLOPRAMIDE 5 MG TAB PO (21:22)
[2017-11-03] MEDS: DOCUSATE SODIUM 100 MG CAP PO (08:14)
[2017-11-03] MEDS: METOCLOPRAMIDE 5 MG TAB PO (08:14)
[2017-11-03] MEDS: AZITHROMYCIN 250 MG TAB PO (08:14)
[2017-11-03] MEDS: QUEtiapine FUMARATE 50 MG TAB PO (08:14)
[2017-11-03] MEDS: BUPRENORPHINE/NALOXONE 8-2MG SUBLINGUAL TABLET(SUBOXONE) SL (08:15)
[2017-11-03] MEDS: INFLUENZA QUADRIVALENT PF VACCINE 0.5ML SYRINGE (90686) IM (08:16)
== END 2017-11-03 14:45 | disposition home or self-care (01) | DRG 751 ==
LOC: M PSY 14:50
DX: F32.4 Major depressive disorder, single episode, in partial remission (principal); G40.909 Epilepsy, unspecified, not intractable, without status epilepticus; F41.1 Generalized anxiety disorder; F11.90 Opioid use, unspecified, uncomplicated; F60.89 Other specific personality disorders; Z79.899 Other long term (current) drug therapy

== ENCOUNTER → 2018-03-12 | Outpatient (REF) | payer MEDICAID, OTHER ==
[~2018-03-12] MED LIST changes: +/ANUSHCSU TOP; +/MOM400 PO; +ACET50TA PO; -ACETAMINOPHEN TAB 650MG DOSE (2X325MG) PO; -ALBUTEROL 90 MCG/ACT 8GM HFA INHALER INH; +AZIT-12 PO; +BUPR1SUB5 SL; +DOCU10ELUD PO; +IBUP600T26 PO; +KEPP1TAB PO; +LITH300C PO; -MAALOX 30 ML SUSP *UDC PO; -MOM 30ML SUSPENSION UDC PO; +NORT25CA2 PO; +OLAN5TAB PO; -OLANZapine 5 MG TAB PO; +OXYC1SOL3 PO; +OXYC5CAP28 PO; +PAME50CA PO; +PARO40TA3 PO; +PATIENT COMMENTS; +PRENTAB74 PO; +QUET5TAB PO; +TOPA100T12 PO; +TOPI200T7 PO; +TRAZ-186 PO; +TRAZO50TA PO; +VIMP100T PO; -traZODone 50 MG TAB PO
[2018-03-12 23:03] LABS: CHLAMYDIA DNA AMPLIFICATION NEGATIVE (NEGATIVE); GC DNA AMPLIFICATION NEGATIVE (NEGATIVE)
== END ==
LOC: M SFHCPLAZ 18:45
PROVIDERS: ATTEND Family Medicine
DX: Z11.3 Encounter for screening for infections with a predominantly sexual mode of transmission (principal)

== ENCOUNTER → 2018-04-24 | Outpatient (CLI) | payer OTHER ==
[2018-04-24 13:57] LABS: CHLAMYDIA DNA AMPLIFICATION NEGATIVE (NEGATIVE); GC DNA AMPLIFICATION NEGATIVE (NEGATIVE)
== END ==
LOC: M WUC 10:37
PROVIDERS: ATTEND Family Medicine
DX: Z11.3 Encounter for screening for infections with a predominantly sexual mode of transmission (principal)

== ENCOUNTER → 2018-09-26 | Outpatient (CLI) | payer OTHER ==
[~2018-09-26] MED LIST changes: -/ANUSHCSU TOP; -/MOM400 PO; -ACET50TA PO; -DOCU10ELUD PO; +DOCU5LIQ PO; +HYDR1SUP3 TOP; +MAPA500T17 PO; +MILK10SU PO; +TRAZ1TAB10 PO; -TRAZO50TA PO
--- NOTE | 2018-09-26 20:32 | REP ---
Right wrist series: Four views. History: Lateral wrist pain. Redness. Findings: Comparison is made with right hand radiographs from April 04, 2013. Overall mineralization pattern is normal. No erosive changes seen. No fracture or subluxation noted. Impression: Negative radiographs of the right wrist. Electronically Signed by Rafy López MD 09/26/2018 09:19 P
== END ==
LOC: M WUC 15:12
PROVIDERS: ATTEND Physician Assistant
DX: M65.4 Radial styloid tenosynovitis [de Quervain] (principal)

== ENCOUNTER 2019-03-14 08:34 | Emergency (ER) | payer OTHER ==
[~2019-03-14] VITALS: Ht 170.2 cm; Wt 66.0 kg
[~2019-03-14 08:34] MED LIST changes: -BACL10TA2; -NS 1,000 ML IV ONE
[2019-03-14] MEDS ORDERED: NS 1,000 ML IV ONE (09:15)
[2019-03-14 09:19] LABS: BASO # 0.1 10^3/uL (0.0-0.2); BASO % 0.7 % (0.0-1.0); EOS # 0.1 10^3/uL (0.0-0.5); HEMATOCRIT 41.2 % (36.0-47.0); HEMOGLOBIN 13.7 g/dl (12.0-15.5); LYMPH # 2.1 10^3/uL (1.5-5.0); LYMPH % 29.1 % (24.0-44.0); MEAN CORPUSCULAR HEMOGLOBIN 29.2 pg (27.0-33.0); MEAN CORPUSCULAR HGB CONC 33.3 g/dl (32.0-36.5); MEAN CORPUSCULAR VOLUME 87.8 fl (80.0-96.0); MONO # 0.5 10^3/uL (0.0-0.8); MONO % 6.7 % (0.0-5.0); NEUTROPHILS # 4.3 10^3/uL (1.5-8.5); NEUTROPHILS % 61.2 % (36.0-66.0); PLATELET COUNT, AUTOMATED 252 10^3/uL (150-450); RED BLOOD COUNT 4.69 10^6/uL (4.00-5.40)
[2019-03-14] MEDS ORDERED: BACL10TA2 (09:24)
[2019-03-14 09:30] VITALS: BP 114/79
[2019-03-14 09:52] LABS: BLOOD UREA NITROGEN 11 MG/DL (7-18); CALCIUM LEVEL 8.6 MG/DL (8.5-10.1); CARBON DIOXIDE LEVEL 23 MEQ/L (21-32); CHLORIDE LEVEL 116 MEQ/L (98-107); GLOMERULAR FILTRATION RATE > 60.0 (>60); GLUCOSE, FASTING 100 MG/DL (70-100); POTASSIUM SERUM 3.9 MEQ/L (3.5-5.1); SODIUM LEVEL 144 MEQ/L (136-145)
[2019-03-14 09:53] LABS: HCG, SERUM QUALITATIVE NEGATIVE (NEGATIVE)
[2019-03-14 10:54] LABS: AMPHETAMINES LEVEL URINE NEGATIVE (NEGATIVE); BARBITURATES URINE NEGATIVE (NEGATIVE); BENZODIAZEPINES URINE NEGATIVE (NEGATIVE); CANNABINOIDS URINE POSITIVE (NEGATIVE); COCAINE METABOLITE URINE NEGATIVE (NEGATIVE); METHADONE URINE NEGATIVE (NEGATIVE); OPIATES URINE POSITIVE (NEGATIVE); PHENCYCLIDINE URINE NEGATIVE (NEGATIVE)
--- NOTE | 2019-03-15 13:15 | ECGEPIP ---
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
== END 2019-03-14 11:49 | disposition home or self-care (01) ==
LOC: M ED 08:34
DX: R55 Syncope and collapse (principal); R94.31 Abnormal electrocardiogram [ECG] [EKG]; Z79.3 Long term (current) use of hormonal contraceptives; Z79.899 Other long term (current) drug therapy; Z98.890 Other specified postprocedural states

== ENCOUNTER → 2019-03-14 | Day surgery (SDC) | payer OTHER ==
[~2019-03-14] VITALS: Ht 170.2 cm; Wt 66.7 kg
[~2019-03-14] MED LIST changes: +BACL10TA2; +CLONI1TA PO; +MIRE1IUD IU; +NS 1,000 ML IV ONE; +SERO1TAB PO; +SUBO8MIS SL
== END | disposition home or self-care (01) ==
LOC: M OPP 08:03
PROVIDERS: ATTEND Internal Medicine Gastroenterology
DX: K92.1 Melena (principal); Z53.9 Procedure and treatment not carried out, unspecified reason

== ENCOUNTER 2019-03-26 22:05 | Inpatient (IN) | payer OTHER ==
[~2019-03-26] VITALS: Ht 170.2 cm; Wt 56.5 kg
[~2019-03-26 22:05] MED LIST changes: +BACL10TA2
[2019-03-26 23:22] LABS: BASO % 0.6 % (0.0-1.0); EOS # 0.1 10^3/uL (0.0-0.5); EOS % 1.7 % (0.0-3.0); HEMATOCRIT 38.1 % (36.0-47.0); HEMOGLOBIN 12.7 g/dl (12.0-15.5); LYMPH # 2.4 10^3/uL (1.5-5.0); LYMPH % 33.6 % (24.0-44.0); MEAN CORPUSCULAR HEMOGLOBIN 28.8 pg (27.0-33.0); MEAN CORPUSCULAR HGB CONC 33.3 g/dl (32.0-36.5); MEAN CORPUSCULAR VOLUME 86.4 fl (80.0-96.0); MONO # 0.6 10^3/uL (0.0-0.8); MONO % 8.6 % (0.0-5.0); NEUTROPHILS # 3.9 10^3/uL (1.5-8.5); NEUTROPHILS % 55.2 % (36.0-66.0); PLATELET COUNT, AUTOMATED 292 10^3/uL (150-450); RED BLOOD COUNT 4.41 10^6/uL (4.00-5.40)
[2019-03-26 23:36] LABS: HCG, SERUM QUALITATIVE NEGATIVE (NEGATIVE)
[2019-03-26 23:43] LABS: ACETAMINOPHEN LEVEL < 2.0 UG/ML (10.0-30.0); ALBUMIN 3.9 GM/DL (3.2-5.2); ALT/SGPT 24 U/L (12-78); BILIRUBIN,DIRECT 0.1 MG/DL (0.0-0.2); BILIRUBIN,TOTAL 0.3 MG/DL (0.2-1.0); BLOOD UREA NITROGEN 10 MG/DL (7-18); CALCIUM LEVEL 8.9 MG/DL (8.5-10.1); CARBON DIOXIDE LEVEL 26 MEQ/L (21-32); CHLORIDE LEVEL 111 MEQ/L (98-107); CPK CREATINE PHOSPHOKINASE 424 U/L (26-192); CREATININE FOR GFR 0.72 MG/DL (0.55-1.30); ETHYL ALCOHOL (ETHANOL) < 0.003 % (0.000-0.010); GLOMERULAR FILTRATION RATE > 60.0 (>60); GLUCOSE, FASTING 99 MG/DL (70-100); POTASSIUM SERUM 3.5 MEQ/L (3.5-5.1); SALICYLATE LEVEL < 1.7 MG/DL (5.0-30.0); SODIUM LEVEL 143 MEQ/L (136-145); TOTAL PROTEIN 7.6 GM/DL (6.4-8.2)
[2019-03-27] VITALS (19 sets, daily range): BP systolic 116–145; BP diastolic 74–90
[2019-03-27] MEDS ORDERED: NALOXONE INJ 2 MG/2 ML SYRINGE (J2310) IV STA ×2 (00:19→00:27)
[2019-03-27] MEDS ORDERED: NALOXONE INJ 2 MG/2 ML SYRINGE (J2310) As Ordered ONE (00:20)
[2019-03-27] MEDS ORDERED: NS 500 ML IV ONE (00:30)
[2019-03-27] MEDS ORDERED: ONDANSETRON 4MG/2ML VIAL (J2405) IV ONE (00:45)
[2019-03-27 00:48] LABS: AMPHETAMINES LEVEL URINE NEGATIVE (NEGATIVE); BARBITURATES URINE NEGATIVE (NEGATIVE); BENZODIAZEPINES URINE NEGATIVE (NEGATIVE); CANNABINOIDS URINE POSITIVE (NEGATIVE); COCAINE METABOLITE URINE NEGATIVE (NEGATIVE); METHADONE URINE NEGATIVE (NEGATIVE); OPIATES URINE POSITIVE (NEGATIVE); PHENCYCLIDINE URINE NEGATIVE (NEGATIVE)
[2019-03-27] MEDS ORDERED: MIDAZOLAM INJ 5 MG/ML VIAL (J2250) As Ordered ONE ×2 (00:52→01:30)
[2019-03-27] MEDS ORDERED: MIDAZOLAM INJ 2 MG/2 ML VIAL (J2250) IV ONE (01:00)
--- NOTE | 2019-03-27 01:23 | REPVR ---
PROCEDURE INFORMATION: Exam: XR Chest, 1 View Exam date and time: 03/26/19 (11:59pm) Age: 28 years old Clinical indication: Drug overdose TECHNIQUE: Imaging protocol: XR of the chest Views: 1 view COMPARISON: Portable CXR of 10/31/17 FINDINGS: Lungs: No consolidation. Mildly prominent lung markings. Pleural space: Unremarkable. No pleural effusion. No pneumothorax. Heart/Mediastinum: Unremarkable. No cardiomegaly. Bones/joints: Marked dextroscoliosis of the mid and lower thoracic spine (unchanged). IMPRESSION: No acute findings. Electronically signed by: Jodee Emerson On 03/27/2019 01:23:05 AM
[2019-03-27] MEDS ORDERED: MIDAZOLAM INJ 5 MG/ML VIAL (J2250) IV ONE ×2 (01:30→02:00)
[2019-03-27] MEDS ORDERED: ETOMIDATE INJ 20MG/10ML VIAL IV STA (02:14)
[2019-03-27] MEDS ORDERED: SUCCINYLCHOLINE INJ 200 MG/10 ML VIAL (J0330) IV STA (02:14)
[2019-03-27] MEDS ORDERED: propofoL 1,000 MG in IV 1 EA IV SCH (02:30)
[2019-03-27] MEDS ORDERED: fentaNYL 100 MCG/2 ML INJECTION (J3010) As Ordered ONE (02:50)
[2019-03-27] MEDS ORDERED: propofoL 200 MG/20 ML VIAL IV ONE ×3 (03:00)
[2019-03-27] MEDS ORDERED: fentaNYL 100 MCG/2 ML INJECTION (J3010) IV ONE (03:00)
[2019-03-27] MEDS ORDERED: ROCURONIUM BROMIDE 50 MG/5 ML VIAL IV SCH (03:00)
[2019-03-27] MEDS ORDERED: METAL LOCK LOOP XX ONE (03:26)
--- NOTE | 2019-03-27 03:30 | REPVR ---
PROCEDURE INFORMATION: Exam: CT Head Without Contrast Exam date and time: 03/27/19 (3:12am) Age: 28 years old Clinical indication: Coma or unconsciousness. Overdose. Altered mental status. TECHNIQUE: Imaging protocol: Computed tomography of the head without contrast. Radiation optimization: All CT scans at this facility use at least one of these dose optimization techniques: automated exposure control; mA and/or kV adjustment per patient size (includes targeted exams where dose is matched to clinical indication); or iterative reconstruction. COMPARISON: CT HEAD of 07/16/17 FINDINGS: Brain: Unremarkable. No acute hemorrhage. Unremarkable white matter. No mass effect. Ventricles: Normal. No ventriculomegaly. Bones/joints: Unremarkable. No acute fracture. Sinuses: Visualized sinuses are unremarkable. No air-fluid levels. Mastoid air cells: Mildly opacified mastoid air cells. Soft tissues: Unremarkable. IMPRESSION: No acute intracranial pathology is appreciated. The brain had a similar appearance in July 2017. Electronically signed by: Jodee Emerson On 03/27/2019 03:30:00 AM
[2019-03-27] MEDS ORDERED: SUMA50TA2 PO (03:57)
[2019-03-27] MEDS ORDERED: MIRA1POW3 PO (03:57)
[2019-03-27] MEDS ORDERED: TOPI50TA9 PO (03:57)
[2019-03-27] MEDS ORDERED: BACL10TA2 PO (03:57)
[2019-03-27] MEDS ORDERED: SUBO8MIS SL (03:57)
[2019-03-27] MEDS ORDERED: MIRE1IUD IU (03:57)
[2019-03-27] MEDS ORDERED: ALBUTEROL SULFATE 2.5 MG/0.5 ML INH NEB SOLN NEB PRN (04:45)
[2019-03-27] MEDS ORDERED: MIDAZOLAM INJ 2 MG/2 ML VIAL (J2250) As Ordered ONE ×2 (05:04→06:09)
[2019-03-27] MEDS ORDERED: PROPOFOL 1,000 MG/100 ML VIAL As Ordered ONE (05:04)
[2019-03-27] MEDS: MIDAZOLAM INJ 2 MG/2 ML VIAL (J2250) IV PRN ×5 (05:08→06:49)
[2019-03-27] MEDS: propofoL 1,000 MG in IV 1 EA IV SCH ×2 (05:09→08:08)
[2019-03-27 05:49] LABS: ABG BASE EXCESS -2.8 (-2.0-2.0); ABG HCO3 22.2 MEQ/L (22.0-26.0); ABG O2 SATURATION 99.1 % (95.0-99.0); ABG PARTIAL PRESSURE CO2 39.7 mmHg (35.0-45.0); ABG PARTIAL PRESSURE O2 160.6 mmHg (75.0-100.0); ABG STANDARD HCO3 22.2 MEQ/L (22.0-26.0); ABG TOTAL CO2 23.4 MEQ/L (22.0-29.0); ABG pH (ARTERIAL) 7.366 UNITS (7.350-7.450)
[2019-03-27] MEDS: NS 1,000 ML IV SCH ×2 (06:49→17:51)
--- NOTE | 2019-03-27 08:03 | REP ---
Clinical: Endotracheal tube placement. Comparison: 03/26/2019. Findings: Mediastinum and cardiac silhouette stable. Endotracheal tube approximately 2.5 cm above the cristina. Nasogastric tube courses below left hemidiaphragm. Lung hale are relatively clear without focal consolidation, effusion, or pneumothorax. Skeletal structures stable and scoliosis again noted. Impression: Endotracheal tube and nasogastric tube in satisfactory position. No focal consolidation or effusion. Electronically Signed by Tomer Monae MD 03/27/2019 07:55 A
[2019-03-27] MEDS: PANTOPRAZOLE 40MG INJ (PROTONIX) (C9113) IV SCH (08:55)
[2019-03-27] MEDS: ENOXAPARIN 30 MG/0.3 ML SYR (J1650) SC SCH (08:56)
[2019-03-27] MEDS ORDERED: CHLORHEXIDINE GLUCONATE 0.12 % 15ML UDC (PERIDEX ORAL RINSE) MT SCH (09:00)
[2019-03-27 09:14] LABS: BASO # 0.1 10^3/uL (0.0-0.2); BASO % 0.5 % (0.0-1.0); EOS # 0.1 10^3/uL (0.0-0.5); EOS % 1.1 % (0.0-3.0); HEMATOCRIT 41.6 % (36.0-47.0); HEMOGLOBIN 13.4 g/dl (12.0-15.5); LYMPH # 2.6 10^3/uL (1.5-5.0); LYMPH % 25.2 % (24.0-44.0); MEAN CORPUSCULAR HEMOGLOBIN 28.3 pg (27.0-33.0); MEAN CORPUSCULAR HGB CONC 32.2 g/dl (32.0-36.5); MEAN CORPUSCULAR VOLUME 87.9 fl (80.0-96.0); MONO # 1.3 10^3/uL (0.0-0.8); MONO % 11.9 % (0.0-5.0); NEUTROPHILS # 6.4 10^3/uL (1.5-8.5); NEUTROPHILS % 60.9 % (36.0-66.0); PLATELET COUNT, AUTOMATED 286 10^3/uL (150-450); RED BLOOD COUNT 4.73 10^6/uL (4.00-5.40); WHITE BLOOD COUNT 10.5 10^3/uL (4.0-10.0)
[2019-03-27 09:46] LABS: ALBUMIN 3.7 GM/DL (3.2-5.2); ALT/SGPT 22 U/L (12-78); BLOOD UREA NITROGEN 9 MG/DL (7-18); CALCIUM LEVEL 8.6 MG/DL (8.5-10.1); CARBON DIOXIDE LEVEL 25 MEQ/L (21-32); CHLORIDE LEVEL 114 MEQ/L (98-107); CHOLESTEROL LEVEL 116 MG/DL (< 200); CPK CREATINE PHOSPHOKINASE 494 U/L (26-192); CREATININE FOR GFR 0.77 MG/DL (0.55-1.30); GLOMERULAR FILTRATION RATE > 60.0 (>60); GLUCOSE, FASTING 90 MG/DL (70-100); LDH LACTATE DEHYDROGENASE 273 U/L (84-246); MAGNESIUM LEVEL 2.4 MG/DL (1.8-2.4); PHOSPHORUS LEVEL 3.4 MG/DL (2.5-4.9); POTASSIUM SERUM 3.7 MEQ/L (3.5-5.1); SODIUM LEVEL 146 MEQ/L (136-145); TOTAL PROTEIN 7.6 GM/DL (6.4-8.2); TRIGLYCERIDES LEVEL 67 MG/DL (<150)
[2019-03-27 09:47] LABS: BILIRUBIN,TOTAL 0.6 MG/DL (0.2-1.0)
--- NOTE | 2019-03-27 10:14 | HPE ---
DATE OF ADMISSION: 03/27/2019 HISTORY OF PRESENT ILLNESS: Asked by Dr. Gonzalez to emergently evaluate Ms. Payne for acute respiratory failure leading to mechanical ventilation. Ms. Payne is a 28-year-old female for whom this is the third admission for an overdose. Reportedly, she went unresponsive initially at a nail salon this afternoon. Emergency Medical Services (EMS) responded and she awoke and so she went home. Later in the evening her 8-year-old daughter called the EMS as her mother was unresponsive. When EMS arrived, she was somnolent and brought to the emergency department. She was given two doses of Narcan, one 2 mg and the other 4 mg. She woke up but then was very combative and had to be sedated and intubated so an evaluation could be done. It took 15 mg of Versed and intubation medications before she was sedated and her airway was controlled and she could proceed with further testing. Evaluation in the emergency department shown a head CT which was unremarkable as was her chest x-ray. Her laboratory evaluations had shown a normal complete blood count (CBC), chemistry without any anion gap but with an elevated creatinine kinase (CK). test negative and toxicology screen was positive for opiates and cannabinoids. No other history is known. As in the other two admissions no family member accompanied her to the emergency department. It should be noted in a past overdose it was felt she had taken other family members medications. ALLERGIES: NO KNOWN DRUG ALLERGIES. MEDICATIONS (on admission reportedly): - baclofen 10 mg by mouth three times a day - Suboxone one strip sublingual daily - clonidine 0.1 mg by mouth nightly - Mirena 20 mcg IU - MiraLAX 17 grams by mouth every day - Seroquel 100 mg by mouth twice a day - sumatriptan 50 mg by mouth twice a day as needed - topiramate 50 mg by mouth twice a day PAST MEDICAL HISTORY: 1. History of two overdoses in 2018 thought secondary to baclofen and lithium. 2. History of heroin and opioid abuse on Suboxone. 3. Depression. 4. Bipolar disorder. 5. Seizure disorder per chart. 6. History of pituitary tumor. 7. History of asthma in childhood. 8. History of tobacco usage and vaping. SOCIAL HISTORY: Unattainable secondary to intubation. FAMILY HISTORY: Noted for chronic pain in her mother requiring her to participate in the pain clinic. Ms. Payne had a cousin by heroin overdose. REVIEW OF SYSTEMS: Unattainable secondary to intubation, what is known is contained within the history of present illness. PHYSICAL EXAMINATION: GENERAL: Ms. Payne is lying in bed in acute distress. She is synchronous with the ventilator. VITAL SIGNS: Temperature 98.2, pulse 88, respiratory rate 22, blood pressure 126/60 with mean arterial pressure (MAP) of 82, SpO2 100% on FiO2 of 0.35. HEENT: Anicteric, pupils 2-3 mm and minimally reactive. The right pupil is slightly larger than left. Nares: Patent bilaterally and moist mucosa. Endotracheal (ET) tube and orogastric (OG) tube in place. NECK: Supple, without jugular venous distention (JVD), without thyromegaly or masses, trachea is midline. LYMPHATICS: Without cervical or supraclavicular lymphadenopathy. LUNGS: Symmetric excursion, good air entry, no wheeze, rhonchi or crackle on tidal excursion. Normal I:E. No accessory muscle usage or retractions. CARDIOVASCULAR: Regular rate and rhythm with normal S1 and S2, no murmur, rub or gallop appreciated. ABDOMEN: Diminished bowel sounds, soft, nondistended, no hepatosplenomegaly or mass is appreciated. EXTREMITIES: Warm and well-perfused, without clubbing, cyanosis or edema, palpable pedal pulses bilaterally. SKIN: Multiple tattoos. No obvious new track santo including between. There is a slight punctual lesion on the left forearm. LABORATORY DATA: CBC showed a hemoglobin of 12.7, hematocrit 38.1, platelet count 192,000, white blood cell count 7000 with a differential of 55% neutrophils, 34% lymphocytes, 9% monocytes. Chemistry shows sodium 143, potassium 3.5, chloride 111, bicarbonate 26, anion gap 6, BUN 10, creatinine 0.7, glucose 99, calcium 8.9, total bilirubin 0.3, AST 29, ALT 24, alkaline phosphatase 91, CK 424, total protein 7.3, albumin 3.9, TSH 1.260, and HCG qualitative negative. Toxicology: Salicylates less than 1.7, acetaminophen less than 2, alcohol less than 0.003, positive opiates and positive cannabinoids. I reviewed her head CT report which showed no acute intracranial pathology is appreciated. I reviewed her chest x-ray as well as the report that showed normal-appearing cardiac silhouette and pulmonary vascular shadows. Normal-appearing mediastinum and hilar regions. No acute infiltrates. Normal inflation. The second x-ray showed the endotracheal tube in appropriate position. EKG showed sinus bradycardia with a heart rate of [address] changes. Normal QRS morphology. ASSESSMENT: 1. Decreased mental status secondary to overdose leading to mechanical ventilation. 2. Drug overdose, likely opioid though there may be other substances that were not measured. No anion gap. Normal QRS morphology. 3. History of polysubstance abuse and two previous hospitalizations for overdose three. 4. History of heroin abuse on Suboxone. 5. Bipolar disorder. RECOMMENDATIONS: 1. Will provide supportive care. 2. Hopefully, we will be able to find out more information from family members as become available to know if there is other potential substances we should be aware of. There were no indirect signs of other significant toxicity. 3. Will evaluate her later today for possible extubation. CRITICAL CARE TIME: 40 minutes, not including procedure time. ROSY
--- NOTE | 2019-03-27 12:17 | CCN ---
DATE: 03/27/2019 NOTE: Ms. Payne did well overnight. No hemodynamic (dictation cut off). Her propofol was stopped. She was changed to pressure support ventilation initially rate of 8/5 and then at 5/5. Her rapid shallow breathing index was in the 20s. She woke up and was following commands. At this time, she could take in a spontaneous tidal breath of over 1200 mL. She had no significant secretions. It was felt that she was ready for extubation and she was successfully extubated. When she was reevaluated 20-30 minutes later, she was doing well on an aerosolized mask. She had, had labs drawn this morning with her complete blood count (CBC) only remarkable for a white blood cell (WBC) of 10.50 though no left shift, and her chemistries are remarkable for an elevated lactic acid dehydrogenase (LDH) and creatinine kinase (CK). She remains without an anion gap. ASSESSMENT: 1. Acute respiratory failure secondary to decreased mental status secondary to overdose. 2. Overdose thought likely secondary to opiates. There may have been other substances present that did show on toxicology screen but no anion gap and normal QRS morphology. 4. Elevated CK likely secondary to agitation. 5. Increased WBC count. This is an increase likely secondary to stress-induced. No signs suggestive of infection. No left shift. 6. Bipolar disorder. 7. History of heroin usage, on Suboxone. RECOMMENDATIONS: 1. She has not been successfully extubated. 2. Await the arrival of her mother to perhaps shed more light on what happened yesterday and what medication she may have had access to. 3. 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 Additional critical care time 30 minutes.
[2019-03-27] MEDS: ONDANSETRON 4MG/2ML VIAL (J2405) IV PRN ×2 (16:40→23:36)
--- NOTE | 2019-03-27 18:43 | HPEPDOC ---
General Date of Admission Mar 27, 2019 at 04:31 Date of Service: Mar 27, 2019 Attending Physician: TEJAL DE LEÓN MD Chief Complaint The patient is a 28-year-old female admitted with a reason for visit of Acute Respiratory Failure,Drug Abuse. Source: Patient, Family, RN/MD Exam Limitations: No limitations Timing/Duration: 24 hours Severity: Severe Associated Symptoms: Increased agitation History of Present Illness 28-year-old W with PSUD with prior admissions for overdose, who was brought in by EMS after her 8 yo daughter found her unresponsive and called EMS who brought her into the ED unresponsive and she became responsive after narcan. Shortly after waking, she became aggressive combative and required significant sedation such that she was eventually intubated so that she could be evaluated and was subsequently admitted to the ICU early this morning. Intial workup was notable for an unremarkable normal head CTand chest x-ray, while her CBC, BMP were also normal with an elevated CK and tox screen that was positive for opiates and cannabinoids. She was eventually extubated this morning and is now on room air and calm. Home Medications Scheduled Baclofen (Baclofen) 10 Mg Tablet, 10 MG PO TID, (Reported) Buprenorphine HCl/Naloxone HCl (Suboxone 8 mg-2 mg Sl Film) 1 Each Film, 1 STRIP SL DAILY, (Reported) Clonidine Hcl (Clonidine HCl) 0.1 Mg Tablet, 0.1 MG PO QHS, (Reported) Levonorgestrel (Mirena) 1 Each Iud, 20 MCG IU ASDIRECTED, (Reported) IMPLANTED 12/2012 Polyethylene Glycol 3350 (Miralax) 17 Gm Powd.pack, 17 GM PO DAILY, (Reported) Quetiapine Fumarate (Seroquel) 100 Mg Tablet, 100 MG PO BID, (Reported) Topiramate (Topiramate) 50 Mg Tablet, 50 MG PO BID, (Reported) Scheduled PRN Sumatriptan Succinate (Sumatriptan Succinate) 50 Mg Tablet, 50 MG PO BID PRN for MIGRAINE, (Reported) Allergies Coded Allergies: No Known Allergies (Unverified , 03/08/19) Past Medical History Medical History 1. History of two overdoses in 2018 thought secondary to baclofen and lithium. 2. History of heroin and opioid abuse on Suboxone. 3. Depression. 4. Bipolar disorder. 5. Seizure disorder per chart. 6. History of pituitary tumor. 7. History of asthma in childhood. 8. History of tobacco usage and vaping. Family History Chronic pain in her mother requiring her to participate in the pain clinic. She had a cousin who of a heroin overdose. Social History * Smoker: current smoker (vapes) Drugs: heroin, marijuana Recent Travel/Sick Contacts: Denies: Recent travel, Recent sick contacts Psychosocial History: Decreased mood, Depression A-FIB/CHADSVASC A-FIB History Current/History of A-Fib/PAF?: No Current PO Anticoag Therapy: No Age/Risk Factor Scoring CHADSVASC: CHADSVASC Response (Comments) Value Age Risk Factor Age < 65 years old 0 Gender Risk Factor Female 1 Hx of CHF No 0 Hx of HTN No 0 Hx of Stroke/TIA/or VTE No 0 Hx of Diabetes No 0 Hx of Vascular Disease No 0 Total 1 Treatment Treatment ordered: NONE Reason Anticoagulant not given: Not indicated/[id number] Review of Systems Constitutional: Denies: Chills, Fever, Night Sweats Eyes: Denies: Pain, Vision change ENT: Denies: Head Aches, Ear Pain, Dysphagia Skin: Denies: Rash, Lesions, Breakdown Pulmonary: Denies: Dyspnea, Cough Cardiovascular: Denies: Chest Pain, Palpitations, Orthopnea, Paroxysmal Noc. D yspnea, Lt Headedness Gastrointestinal: Denies: Nausea, Vomiting, Abdominal Pain, Diarrhea Genitourinary: Denies: Dysuria, Frequency, Incontinence, Retention Hematologic: Denies: Bruising, Bleeding Excessively Endocrine: Denies: Polydipsia, Polyphagia, Polyuria, Heat Intolerance, Cold Intolerance, Other Endocrine Sx Musculoskeletal: Denies: Neck Pain, Back Pain, Joint Pain, Muscle Pain, Spasms Neurological: Reports: Other Symptoms (unresponsiveness); Denies: Weakness, Numbness, Change in speech, Confusion Psych: Reports: Depression Physical Examination General Exam: Positive: Alert, No Acute Distress Eye Exam: Positive: PERRLA, Conjunctiva & lids normal, EOMI; Negative: Sclera icteric ENT Exam: Positive: Atraumatic, Mucous membr. moist/pink, Pharynx Normal Neck Exam: Positive: Supple; Negative: JVD, thyromegaly Chest Exam: Positive: Clear to auscultation, Normal air movement, Rhonchi (with upper airway transmitted sounds, without crackles or wheezing) Heart Exam: Positive: Rate Normal, Regular Rhythm, Normal S1, Normal S2; Negative: Murmurs, Rubs Telemetry: Positive: No significant arrhythmia, Sinus Abdomen Exam: Positive: Normal bowel sounds, Soft; Negative: Tenderness, Hepatospenomegaly Extremity Exam: Positive: Normal pulses; Negative: Clubbing, Cyanosis, Edema Skin Exam: Positive: Nl turgor and temperature; Negative: Breakdown, Lesion Neuro Exam: Positive: Normal Speech, Strength at 5/5 X4 ext, Normal Tone, Sensation Intact, Cranial Nerves 3-12 NL Psych Exam: Positive: Oriented x 3 Vital Signs Vital Signs Date Time Temp Pulse Resp B/P (MAP) Pulse Ox O2 Delivery O2 Flow Rate FiO2 03/27/19 17:30 100.1 Room Air 03/27/19 16:08 71 125/81 (96) 96 03/27/19 13:00 38 30 Laboratory Data Labs 24H Laboratory Tests 2 03/26/19 23:01: Immature Granulocyte % (Auto) 0.3, Neutrophils (%) (Auto) 55.2, Lymphocytes (%) (Auto) 33.6, Monocytes (%) (Auto) 8.6H, Eosinophils (%) (Auto) 1.7, Basophils (%) (Auto) 0.6, Neutrophils # (Auto) 3.9, Lymphocytes # (Auto) 2.4, Monocytes # (Auto) 0.6, Eosinophils # (Auto) 0.1, Basophils # (Auto) 0.0, Nucleated Red Blood Cells % (auto) 0.0, Anion Gap 6L, Glomerular Filtration Rate > 60.0, Calcium Level 8.9, Total Bilirubin 0.3, Direct Bilirubin 0.1, Aspartate Amino Transf (AST/SGOT) 29, Alanine Aminotransferase (ALT/SGPT) 24, Alkaline Phosphatase 91, Total Creatine Kinase 424H, Total Protein 7.6, Albumin 3.9, Albumin/Globulin Ratio 1.05, Thyroid Stimulating Hormone (TSH) 1.260, Human Chorionic Gonadotropin, Qual NEGATIVE, Salicylates Level < 1.7L, Acetaminophen Level < 2.0L, Ethyl Alcohol Level < 0.003 03/26/19 23:33: Bedside Glucose (Misc Panel) 100 03/26/19 23:50: Urine Opiates Screen POSITIVEH, Urine Methadone Screen NEGATIVE, Urine Barbiturates Screen NEGATIVE, Urine Phencyclidine Screen NEGATIVE, Urine Amphetamines Screen NEGATIVE, Urine Benzodiazepines Screen NEGATIVE, Urine Cocaine Metabolite Screen NEGATIVE, Urine Cannabinoids Screen POSITIVEH 03/27/19 05:38: Blood Gas Bicarbonate Standard 22.2, Arterial Blood pH 7.366, Arterial Blood Partial Pressure CO2 39.7, Arterial Blood Partial Pressure O2 160.6H, Arterial Blood Total CO2 23.4, Arterial Blood HCO3 22.2, Arterial Blood Base Excess - 2.8L, Arterial Blood Oxygen Saturation 99.1H 03/27/19 08:56: Immature Granulocyte % (Auto) 0.4, Neutrophils (%) (Auto) 60.9, Lymphocytes (%) (Auto) 25.2, Monocytes (%) (Auto) 11.9H, Eosinophils (%) (Auto) 1.1, Basophils (%) (Auto) 0.5, Neutrophils # (Auto) 6.4, Lymphocytes # (Auto) 2.6, Monocytes # (Auto) 1.3H, Eosinophils # (Auto) 0.1, Basophils # (Auto) 0.1, Nucleated Red Bl ood Cells % (auto) 0.0, Anion Gap 7L, Glomerular Filtration Rate > 60.0, Calcium Level 8.6, Phosphorus Level 3.4, Magnesium Level 2.4, Total Bilirubin 0.6#, Aspartate Amino Transf (AST/SGOT) 33, Alanine Aminotransferase (ALT/SGPT) 22, Alkaline Phosphatase 82, Lactate Dehydrogenase 273H, Total Creatine Kinase 494H, Total Protein 7.6, Albumin 3.7, Albumin/Globulin Ratio 0.95L, Triglycerides Level 67, Cholesterol Level 116 CBC/BMP Laboratory Tests 03/26/19 23:01 03/27/19 08:56 Assessment/Plan 28 yo woman with PSUD with prior admissions for drug overdose who was brought in unresponsive and found to have opiates and marijuana in her tox screen with rapid improvement adter narcan c/b agitation for which she was eventually intubated, now extubated and doing well and being transferred to [facility] floor from ICU. ASSESSMENT: 1. Decreased mental status secondary to overdose leading to mechanical ventilation. -s/p narcan c/b agitation requiring intubation, now s/p extubation doing well -will monitor 2. Drug overdose, likely opioid though there may be have been other substances : -continued to have stable labs within normal limits and normal EKG -Exam has now returned to normal, and will monitor overnight on the floor 3. History of polysubstance use disorder with prior admissions for overdose: -Will offer addiction clinic services information that she can call and set up outpatient follow up -holding suboxone as well as her other psychotropes at this time 4. Bipolar disorder. -Holding all her home psychotropes. will begin at discharge now that exam has normalized Diet: regular DVT ppx: lovenox 30 Plan / VTE VTE Prophylaxis Ordered?: Yes TEJAL DE LEÓN MD Mar 27, 2019 18:43
--- NOTE | 2019-03-27 20:06 | ECGEPIP ---
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
--- NOTE | 2019-03-27 20:07 | ECGEPIP ---
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
[2019-03-28 05:44] VITALS: BP 126/74
[2019-03-28 06:49] LABS: BASO % 0.5 % (0.0-1.0); HEMATOCRIT 35.3 % (36.0-47.0); HEMOGLOBIN 12.2 g/dl (12.0-15.5); LYMPH # 1.4 10^3/uL (1.5-5.0); LYMPH % 15.5 % (24.0-44.0); MEAN CORPUSCULAR HEMOGLOBIN 29.4 pg (27.0-33.0); MEAN CORPUSCULAR HGB CONC 34.6 g/dl (32.0-36.5); MEAN CORPUSCULAR VOLUME 85.1 fl (80.0-96.0); MONO # 0.4 10^3/uL (0.0-0.8); MONO % 4.9 % (0.0-5.0); NEUTROPHILS % 78.8 % (36.0-66.0); PLATELET COUNT, AUTOMATED 257 10^3/uL (150-450); RED BLOOD COUNT 4.15 10^6/uL (4.00-5.40); WHITE BLOOD COUNT 8.8 10^3/uL (4.0-10.0)
[2019-03-28 07:15] LABS: ALBUMIN 3.5 GM/DL (3.2-5.2); ALT/SGPT 20 U/L (12-78); BILIRUBIN,TOTAL 0.8 MG/DL (0.2-1.0); BLOOD UREA NITROGEN 10 MG/DL (7-18); CALCIUM LEVEL 8.6 MG/DL (8.5-10.1); CARBON DIOXIDE LEVEL 21 MEQ/L (21-32); CHLORIDE LEVEL 111 MEQ/L (98-107); CHOLESTEROL LEVEL 116 MG/DL (< 200); CPK CREATINE PHOSPHOKINASE 348 U/L (26-192); CREATININE FOR GFR 0.66 MG/DL (0.55-1.30); GLOMERULAR FILTRATION RATE > 60.0 (>60); GLUCOSE, FASTING 114 MG/DL (70-100); LDH LACTATE DEHYDROGENASE 227 U/L (84-246); MAGNESIUM LEVEL 1.8 MG/DL (1.8-2.4); PHOSPHORUS LEVEL 2.5 MG/DL (2.5-4.9); POTASSIUM SERUM 3.4 MEQ/L (3.5-5.1); SODIUM LEVEL 142 MEQ/L (136-145); TRIGLYCERIDES LEVEL 59 MG/DL (<150)
--- NOTE | 2019-03-28 08:55 | DSES ---
DATE OF ADMISSION: 03/27/2019 DATE OF DISCHARGE: PRINCIPAL DIAGNOSIS: Intentional drug overdose with combative behavior, requiring intubation. SECONDARY DIAGNOSES: 1. History of polydrug abuse. 2. History of heroin and opiate abuse. 3. Depression. 4. Bipolar disorder. 5. Seizure disorder. HISTORY: The patient was admitted after an overdose. Details of the history and physical as per admission. HOSPITAL COURSE: She was admitted to the intensive care unit (ICU). She had to be intubated for appropriate evaluation. She was extubated after a short period in the ICU and transferred to the floor. She remained stable after transfer. She has had no recurrence of altered mental status. On the day of discharge, she is alert, conversant, no distress. I offered evaluation for inpatient drug treatment program but she declined this. She also declined outside efforts to locate these programs. She says that she will do this on her own. PHYSICAL EXAMINATION: VITAL SIGNS: Blood pressure 126/74, pulse 77, respiratory rate 16, 96% oxygen saturation. She is alert, conversant, no distress. LUNGS: Clear. HEART: Regular rhythm. ABDOMEN: Soft, nontender. NEUROLOGIC: Nonfocal. LABORATORIES: Unremarkable today. DISPOSITION: She will be discharged today after she is seen by patient and family services (PFS). Her activity is as tolerated. Diet is as tolerated. DISCHARGE MEDICATIONS: Same as what she was taking before admission: - Baclofen 10 mg three times a day - Suboxone 8 mg daily - clonidine 0.1 mg at night - Mirena implant - MiraLAX as needed - Seroquel 100 mg twice a day - sumatriptan 50 mg twice a day - Topamax 50 mg twice a day At the time of this dictation, there are no pending laboratories.
[2019-03-28] MEDS: PANTOPRAZOLE 40MG INJ (PROTONIX) (C9113) IV SCH (09:00)
[2019-03-28] MEDS: ENOXAPARIN 30 MG/0.3 ML SYR (J1650) SC SCH (09:00)
[2019-03-28] MEDS: NS 1,000 ML IV SCH (09:56)
== END 2019-03-28 13:15 | disposition home or self-care (01) | DRG 812 ==
LOC: M ED 22:05 → M ICU 03-27 04:31 → ENRESERV 03-27 04:44 → M MS5PR 03-27 17:45
PROVIDERS: ADMIT Internal Medicine Pulmonary Disease; ATTEND Family Medicine
PROC: 5A1935Z Respiratory Ventilation, Less than 24 Consecutive Hours (ICD-10-PCS; principal; 2019-03-27)
DX: T40.2X1A Poisoning by other opioids, accidental (unintentional), initial encounter (principal); J96.00 Acute respiratory failure, unspecified whether with hypoxia or hypercapnia; F31.9 Bipolar disorder, unspecified; Z79.899 Other long term (current) drug therapy; G40.909 Epilepsy, unspecified, not intractable, without status epilepticus

== ENCOUNTER 2019-07-23 12:50 | Inpatient (IN) | payer OTHER ==
[~2019-07-23] VITALS: Ht 170.2 cm; Wt 58.9 kg
[~2019-07-23 12:50] MED LIST changes: +BACL10TA2 PO; +MIRA1POW3 PO; +SUMA50TA2 PO; +TOPI50TA9 PO
[2019-07-23] MEDS ORDERED: ONDANSETRON 4MG/2ML VIAL As Ordered ONE (13:19)
[2019-07-23 13:25] LABS: BASO # 0.1 10^3/uL (0.0-0.2); BASO % 0.5 % (0.0-1.0); EOS % 0.4 % (0.0-3.0); HEMOGLOBIN 13.9 g/dl (12.0-15.5); LYMPH # 1.7 10^3/uL (1.5-5.0); LYMPH % 15.9 % (24.0-44.0); MEAN CORPUSCULAR HEMOGLOBIN 28.1 pg (27.0-33.0); MEAN CORPUSCULAR HGB CONC 33.1 g/dl (32.0-36.5); MEAN CORPUSCULAR VOLUME 84.8 fl (80.0-96.0); MONO # 0.6 10^3/uL (0.0-0.8); MONO % 5.4 % (0.0-5.0); NEUTROPHILS # 8.4 10^3/uL (1.5-8.5); NEUTROPHILS % 77.5 % (36.0-66.0); PLATELET COUNT, AUTOMATED 305 10^3/uL (150-450); RED BLOOD COUNT 4.95 10^6/uL (4.00-5.40); WHITE BLOOD COUNT 10.8 10^3/uL (4.0-10.0)
[2019-07-23] MEDS ORDERED: ONDANSETRON 4MG/2ML VIAL IV ONE (13:30)
[2019-07-23 13:58] LABS: ALBUMIN 4.1 GM/DL (3.2-5.2); BILIRUBIN,DIRECT 0.1 MG/DL (0.0-0.2); BILIRUBIN,TOTAL 0.4 MG/DL (0.2-1.0); TOTAL PROTEIN 8.3 GM/DL (6.4-8.2)
[2019-07-23] MEDS ORDERED: ISOVUE-370 76% 100ML VIAL As Ordered ONE (14:08)
[2019-07-23] MEDS ORDERED: KETOROLAC 30 MG/ML 1ML VIAL IV ONE (14:15)
[2019-07-23] MEDS ORDERED: MORPHINE 4 MG/ML 1ML VIAL/SYRINGE (J2270) IV ONE (15:15)
--- NOTE | 2019-07-23 15:51 | HPEPDOC ---
[facility] Medical History & Physical Date of Admission Jul 23, 2019 Date of Service: Jul 23, 2019 Primary Care Physician: CATARINA DAVILA MD Attending Physician: MING HARRELL MD History and Physical TIME OF SERVICE: 445pm CHIEF COMPLAINT: Abdominal pain HISTORY OF PRESENT ILLNESS: This is a 29-year-old female who presents with complaints of 2 day duration, nonradiating upper gradually worsening 8 out of 10 in severity, abdominal pain. She has never had this kind of pain before. She cannot identify any aggravating or alleviating factors. She also had several episodes of nonbloody emesis. She denies being constipated and had loose stools last night. She denies eating out recently, or having any pain with urination. CT of the abdomen showed possible SMA syndrome. PIPPA Chandler discussed these findings with Dr. Alonso who recommended consulting surgery. She also discuss these findings with Dr. Myers. REVIEW OF SYSTEMS: 12 point review of systems negative except as listed in HPI PAST MEDICAL/ SURGICAL HISTORY: Depression Bipolar disorder Seizure disorder. History of pituitary tumor History of childhood asthma SOCIAL HISTORY: Polysubstance abuse including tobacco, vaping, THC heroin and opiates History of 3 overdoses ALLERGIES: Please see below. HOME MEDICATIONS: Please see below. PHYSICAL EXAMINATION: Vital Signs Date Time Temp Pulse Resp B/P (MAP) Pulse Ox O2 Delivery O2 Flow Rate FiO2 07/23/19 12:50 99.0 70 18 137/87 (104) 98 Room Air GEN: well-nourished / well developed/ NAD HEENT: NCAT CVS: RRR/NMRG LUNGS: lungs are clear to auscultation bilaterally on room air ABDOMEN: Contour (flat) / there are no masses or lesions / soft & tender in the epigastric region with palpation NEURO: CN 2-12 are grossly intact / speech is not dysarthric PSYCH: alert and oriented to person place and time/ able to understand and follow all commands LABORATORY DATA: Laboratory Tests 07/23/19 12:57 Immature Granulocyte % (Auto) 0.3, Neutrophils (%) (Auto) 77.5H, Lymphocytes (%) (Auto) 15.9L, Monocytes (%) (Auto) 5.4H, Eosinophils (%) (Auto) 0.4, Basophils (%) (Auto) 0.5, Neutrophils # (Auto) 8.4, Lymphocytes # (Auto) 1.7, Monocytes # (Auto) 0.6, Eosinophils # (Auto) 0.0, Basophils # (Auto) 0.1, Nucleated Red Blood Cells % (auto) 0.0, Total Bilirubin 0.4, Direct Bilirubin 0.1, Aspartate Amino Transf (AST/SGOT) 10, Alanine Aminotransferase (ALT/SGPT) 14, Alkaline Phosphatase 109, Total Protein 8.3H, Albumin 4.1, Albumin/Globulin Ratio 1.0L, Lipase 86 07/23/19 13:14: POC Glucose (Misc Panel) 102, POC Sodium (Misc Panel) 141, POC Potassium (Misc Panel) 3.3L, POC Chloride (Misc Panel) 101, POC Total CO2 (Misc Panel) 24.0, POC Blood Urea Nitrogen (Misc Panel 14, POC Ionized Calcium (Misc Panel) 4.7, POC Creatinine (Misc Panel) 0.7, POC Hematocrit (Misc Panel) 42.0 07/23/19 13:15: POC Beta HCG, Quantitative < 5.0 IMAGING: US Gallbladder "IMPRESSION: Negative right upper quadrant ultrasound." CT abdomen "IMPRESSION: No free air or free fluid. Appendix is normal. The only significant findings identified are somewhat diminished angle between the abdominal aorta and superior mesenteric artery of 22 degrees, as well as decreased distance between the superior mesenteric artery and abdominal aorta at 5 mm. The findings suggest superior mesenteric artery syndrome. " MICROBIOLOGY: Please see below. ASSESSMENT: Ms. Payne is a 29-year-old with a history of bipolar disorder, depression and polysubstance abuse who is admitted for evaluation of abdominal pain of unclear cause. PLAN: 1 Abdominal pain Possibly 2/2 SMA syndrome vs cholecystitis (per Dr. Myers) -admit to med/surg/ NPO / IVF/ zofran / IV toradol and morphine / f/u lactic acid / consult 2. Polysubstance abuse -Fall and seizure precautions / Thiamine, Ativan, & folic acid per [facility] protocol DVT PROPHYLAXIS: SCDs DISPOSITION: Pending clinical course Home Medications Scheduled Buprenorphine HCl/Naloxone HCl (Suboxone 8 mg-2 mg Sl Film) 1 Each Film, 1 STRIP SL DAILY Clonidine Hcl (Clonidine HCl) 0.1 Mg Tablet, 0.1 MG PO QHS Docusate Sodium (Colace) 100 Mg Capsule, 100 MG PO BID Levonorgestrel (Mirena) 1 Each Iud, 20 MCG IU ASDIRECTED IMPLANTED 12/2018 Pantoprazole Sodium (Pantoprazole Sodium) 40 Mg Tablet.dr, 40 MG PO DAILY Quetiapine Fumarate (Seroquel) 100 Mg Tablet, 200 MG PO QHS Senna (Senna Lax) 8.6 Mg Tablet, 17.2 MG PO QHS Topiramate (Topiramate) 50 Mg Tablet, 50 MG PO BID Scheduled PRN Baclofen (Baclofen) 10 Mg Tablet, 10 MG PO TID PRN for PAIN Polyethylene Glycol 3350 (Miralax) 17 Gm Powd.pack, 17 GM PO DAILY PRN for CONSTIPATION Sumatriptan Succinate (Sumatriptan Succinate) 50 Mg Tablet, 50 MG PO BID PRN for MIGRAINE Allergies Coded Allergies: No Known Allergies (Unverified , 03/08/19) A-FIB/CHADSVASC A-FIB History Current/History of A-Fib/PAF?: No Current PO Anticoag Therapy: No MING HARRELL MD Jul 23, 2019 15:51
--- NOTE | 2019-07-23 16:03 | REP ---
RIGHT UPPER QUADRANT ULTRASOUND: Real-time sonographic evaluation of right upper quadrant performed. The gallbladder demonstrates no evidence of intraluminal sludge or calculi, wall thickening, or pericholecystic fluid. There is no intrahepatic or extrahepatic biliary dilatation, common bile duct measuring 4 mm. Liver and pancreas demonstrate no gross mass. Right kidney demonstrates no hydronephrosis with normal size 10.6 cm in length. IMPRESSION: Negative right upper quadrant ultrasound. Electronically Signed by Robert Urrutia MD 07/25/2019 12:49 A
--- NOTE | 2019-07-23 16:09 | REP ---
CT ABDOMEN AND PELVIS WITH IV CONTRAST: TECHNIQUE: Axial contrast-enhanced images from the lung bases to the pubic symphysis using 100 mL Isovue-370 intravenous contrast material with multiplanar reformations. Visualized lung bases are clear. The liver, spleen, adrenals, pancreas, and kidneys are unremarkable. There is no abdominal aortic aneurysm. There is no adenopathy. There is no free air or free fluid. There is no bowel wall thickening. I see no pelvic mass. IUD is seen in the uterus, which is retroverted. Urinary bladder appears unremarkable. There is no evidence of appendicitis. The appendix is normal. The proximal duodenum is mildly dilated. Transverse duodenum is quite small in caliber. The angle between the superior mesenteric artery and abdominal aorta is approximately 22 degrees. The distance between the abdominal aorta and superior mesenteric artery is approximately 5 mm. These findings suggest superior mesenteric artery syndrome. IMPRESSION: No free air or free fluid. Appendix is normal. The only significant findings identified are somewhat diminished angle between the abdominal aorta and superior mesenteric artery of 22 degrees, as well as decreased distance between the superior mesenteric artery and abdominal aorta at 5 mm. The findings suggest superior mesenteric artery syndrome. Electronically Signed by Robert Urrutia MD 07/25/2019 12:51 A
[2019-07-23] MEDS ORDERED: ONDANSETRON 4MG/2ML VIAL IV PRN (16:15)
[2019-07-23] MEDS ORDERED: COLA100C5 PO (16:17)
[2019-07-23] MEDS ORDERED: SENN18TA PO (16:17)
[2019-07-23 17:00] VITALS: BP 135/96
[2019-07-23] MEDS: NS 1,000 ML IV SCH (17:11)
[2019-07-23] MEDS: MORPHINE 2 MG/ML 1ML VIAL (J2270) IV PRN ×2 (18:50→23:05)
[2019-07-23 22:00] VITALS: BP 128/72
[2019-07-24] MEDS: NS 1,000 ML IV SCH ×3 (01:44→21:38)
[2019-07-24] MEDS: KETOROLAC 30 MG/ML 1ML VIAL IV PRN ×3 (01:45→19:54)
[2019-07-24 02:00] VITALS: BP 131/87
[2019-07-24] MEDS: MORPHINE 2 MG/ML 1ML VIAL (J2270) IV PRN ×3 (03:05→21:37)
[2019-07-24 06:00] VITALS: BP 129/86
[2019-07-24 06:15] LABS: BASO % 0.5 % (0.0-1.0); EOS % 0.3 % (0.0-3.0); HEMOGLOBIN 12.2 g/dl (12.0-15.5); LYMPH # 2.4 10^3/uL (1.5-5.0); MEAN CORPUSCULAR VOLUME 85.1 fl (80.0-96.0); MONO # 0.6 10^3/uL (0.0-0.8); MONO % 6.5 % (0.0-5.0); NEUTROPHILS # 5.8 10^3/uL (1.5-8.5); NEUTROPHILS % 65.2 % (36.0-66.0); PLATELET COUNT, AUTOMATED 283 10^3/uL (150-450); RED BLOOD COUNT 4.35 10^6/uL (4.00-5.40); WHITE BLOOD COUNT 8.8 10^3/uL (4.0-10.0)
--- NOTE | 2019-07-24 06:32 | CR ---
DATE OF CONSULTATION: 07/23/2019 REASON FOR CONSULTATION: Vomiting and upper abdominal pain. HISTORY OF PRESENT ILLNESS: The patient reports that starting on Monday night she had noted the onset of nausea and vomiting with some associated epigastric pain. She has had persistent symptoms waxing and waning over the last 2 days or so. At approximately 12:50 on the afternoon of July 22 she presented to the emergency department for evaluation. She was seen by one of the physician assistants. She was found to have some tenderness in the epigastrium. Her laboratory studies showed a slight elevation of the white blood cell count to 11,000 with 78% neutrophils and 16% lymphocytes. Her liver function tests were normal. The physician culture media laboratory assistant (PIPPA) felt that this might well represent a gallbladder related issue. She therefore obtained a gallbladder ultrasound which was interpreted as showing no stones and no evidence of acute gallbladder inflammation. She had a CT scan of the abdomen and pelvis. The radiologist made a note of possible diminished angle between the superior mesenteric artery and abdominal aorta and raised the question of a possible superior mesenteric artery syndrome. No mention is made of the gallbladder. On my review, it seems to me that the gallbladder is perhaps mildly distended and the wall is mildly enhancing and perhaps slightly thickened on the CT scan. No stones were seen. I was asked to evaluate the patient after she was admitted to the hospitalist service for management of her nausea and vomiting. MEDICATIONS: The patient is on several medications at home. She takes topiramate for headaches. She takes sumatriptan as needed for migraines. She has some docusate, MiraLax and senna that she uses on an as needed basis for constipation. She uses Seroquel at bedtime and Mirena for control. She has prescriptions for clonidine and buprenorphine associated with a past history of heroin abuse and she has some baclofen as needed for pain. ALLERGIES: She denies any known drug allergies. SURGICAL HISTORY: Negative. MEDICAL HISTORY: Significant for a history of migraine headaches. She reports a past history of heroin use, but indicates that she has not been using narcotics for 3 years now. She is a smoker. She does report some anxiety and depression. She has had an episode of pyelonephritis previously. She has also been diagnosed with ovarian cysts in the past. She reports that she had some sort of pituitary problem 8 years ago, but that this apparently resolved. REVIEW OF SYSTEMS: Reveals that she has had nausea with vomiting and upper abdominal pain over the last approximately day and half to two days. She denies vomiting any blood. She reports that she has not had similar symptoms previously. She denies any history of hepatitis or pancreatitis or yellow jaundice. She has had no peptic ulcer disease. She has not been vomiting any blood. She has not been eating during this period of time. She has had some voiding, but has not had a bowel movement during this time. She denies any cough, wheezing, sputum production or chest pain. She has no bone or joint issues. There is no history of deep vein thrombosis (DVT) or pulmonary embolus. She denies any dysuria or hematuria. PHYSICAL EXAMINATION: Reveals a pleasant thin young woman sitting up on the bed rocking slightly and holding her stomach. Her most recent vital signs show a temperature of 99.3, pulse of 57, respirations of 20 and blood pressure of 128/72. Skin is warm and dry. Sclerae are anicteric. Mucous membranes are moist. Neck is supple, without bruit. Heart exam shows a regular rate and rhythm of about 60. Lungs are clear to auscultation. Abdomen is thin and flat. There are no evident scars. She does have several tattoos noted. She has some soft bowel sounds in the abdomen. There is no tympany to percussion. There is some mild tenderness to percussion in the right side of the epigastrium just below the costal margin. On palpation, the abdomen is soft and there is some tenderness in the epigastrium slightly to the right of the midline. There is no evident abdominal hernia. She has thin extremities with no palpable edema. She has palpable radial and dorsalis pedis pulses. LABORATORY STUDIES: Include a white count of 11, hemoglobin of 14, hematocrit of 42 and a platelet count of 305,000. Differential count shows 78% neutrophils, 16% lymphocytes and 5% monocytes. Chemistry profile showed sodium of 141, potassium 3.3, chloride 101, CO2 of 24, BUN of 14, creatinine of 0.7 and a glucose of 102. Her liver function tests were normal with a total protein of 8.3, albumin of 4.1 and a lipase of 86. Her lactic acid was 1.0. IMAGING: Included her gallbladder ultrasound and her CT scan of the abdomen and pelvis. These results were noted in the history of present illness. I do think that the gallbladder wall appears to enhance somewhat on the CT scan. IMPRESSION: The patient has two days of epigastric pain, nausea and vomiting. Despite the absence of identified stones on her ultrasound or CT, I think the CT does suggest there may be some enhancement of the gallbladder wall and she has symptoms suggestive I think of acute cholecystitis. RECOMMENDATIONS: I would recommend continuing with antibiotic coverage at this point. I counseled her that she can have some clear liquids for the next couple of hours because she has been asking for something to wet her whistle. We will keep her nothing by mouth (n.p.o.) after 1 o'clock in the morning of the and schedule her for a nuclear biliary scan on the morning of the to assess the possibility of acute cholecystitis. Certainly, this could be some completely not biliary related issue such as gastritis or gastroenteritis. The patient was counseled regarding the concerns about possible gallbladder disease and is agreeable with the plan for the scan in the morning. If this shows normal filling of the gallbladder, then I would recommend gradually advancing her diet as she tolerates it and discharging her home when she is improved. Certainly, if the gallbladder does not fill, then a laparoscopic cholecystectomy during this admission would be warranted. ROSY
[2019-07-24 06:42] LABS: BLOOD UREA NITROGEN 19 MG/DL (7-18); CARBON DIOXIDE LEVEL 25 MEQ/L (21-32); CHLORIDE LEVEL 106 MEQ/L (98-107); CREATININE FOR GFR 0.78 MG/DL (0.55-1.30); GLOMERULAR FILTRATION RATE > 60.0 (>60); GLUCOSE, FASTING 100 MG/DL (70-100); POTASSIUM SERUM 3.4 MEQ/L (3.5-5.1); SODIUM LEVEL 138 MEQ/L (136-145)
[2019-07-24 10:00] VITALS: BP 127/82
[2019-07-24 15:00] VITALS: BP 141/85
--- NOTE | 2019-07-24 15:22 | IPNPDOC ---
Text Note Date of Service The patient was seen on 07/24/19. NOTE SUBJECTIVE: -has abdominal pain this AM but understands that she cannot have morphine until after the HIDA, and so is taking the toradol though it has little effect per her report -Dr. Myers suggested empiric antibiotics until investigations are complete. None yet, and WBC went down, hemodynamically stable and afebrile. -Has HIDA scheduled for this afternoon OBJECTIVE: GEN: well-nourished, well developed, NAD HEENT: NCAT CVS: RRR, no m/r/g LUNGS: CTAB ABDOMEN: Normoactive sounds, tender epigastrium, negative Muniz's, no masses, no guarding or rigidity NEURO: CN 2-12 are grossly intact, normal gait PSYCH: AOx3 LABORATORY DATA: reviewed WBC 8.8 hgb 12.2 K3.4 Cr 0.78 IMAGING: US Gallbladder "IMPRESSION: Negative right upper quadrant ultrasound." CT abdomen "IMPRESSION: No free air or free fluid. Appendix is normal. The only significant findings identified are somewhat diminished angle between the abdominal aorta and superior mesenteric artery of 22 degrees, as well as decreased distance between the superior mesenteric artery and abdominal aorta at 5 mm. The findings suggest superior mesenteric artery syndrome. " MICROBIOLOGY: Please see below. ASSESSMENT: Ms. Payne is a 29-year-old with a history of bipolar disorder, depression and polysubstance abuse who is admitted for evaluation of abdominal pain of unclear cause. PLAN: 1 Abdominal pain Possibly 2/2 SMA syndrome vs unlikely cholecystitis, Dr. Myers consulted, getting HIDA this afternoon -NPO for HIDA -continue IVF -continue zofran -continue IV toradol -holding morphine until HIDA is complete and may start PRN for abdominal pain -will start empiric zosyn 2. Polysubstance abuse -Fall and seizure precautions / Thiamine, Ativan, & folic acid per [facility] protocol DVT PROPHYLAXIS: SCDs DISPOSITION: Pending clinical course, likely home when clinically optimized VS,Fishbone, I+O VS, Fishbone, I+O Laboratory Tests 07/24/19 05:51 Vital Signs Date Time Temp Pulse Resp B/P (MAP) Pulse Ox O2 Delivery O2 Flow Rate FiO2 07/24/19 15:07 18 07/24/19 10:00 98.9 77 127/82 (97) 100 Room Air I&O- Last 24 Hours up to 6 AM 07/24/19 06:00 Intake Total 1615 ml Output Total 400 ml Balance 1215 ml TEJAL DE LEÓN MD Jul 24, 2019 15:22
[2019-07-24] MEDS: PIPERACILLIN/TAZOBACTAM SOD 3.375 GM in D5W MINI-BAG PLUS 50 ML IV SCH ×2 (15:38→21:38)
[2019-07-24 18:00] VITALS: BP 119/73
[2019-07-24 22:00] VITALS: BP 120/77
[2019-07-24] MEDS: RAMELTEON 8 MG TAB (ROZEREM) PO SCH (23:38)
--- NOTE | 2019-07-24 23:46 | REP ---
REASON FOR EXAM: Possible acute cholecystitis. PRIORS: None. Prior ultrasound of 07/23/2019 showed a normal gallbladder. After the intravenous administration of 6.6 mCi of technetium-99m Choletec, hepatobiliary imaging was performed. The gallbladder has visualized at 60 minutes. IMPRESSION: Delayed visualization of the gallbladder. Electronically Signed by Joe Guadarrama DO 07/25/2019 08:05 A
[2019-07-25] MEDS: MORPHINE 2 MG/ML 1ML VIAL (J2270) IV PRN ×2 (01:51→09:50)
[2019-07-25 02:00] VITALS: BP 119/73
[2019-07-25] MEDS: PIPERACILLIN/TAZOBACTAM SOD 3.375 GM in D5W MINI-BAG PLUS 50 ML IV SCH ×2 (03:11→09:35)
[2019-07-25 06:00] VITALS: BP 122/79
[2019-07-25] MEDS: KETOROLAC 30 MG/ML 1ML VIAL IV PRN ×2 (06:21→12:41)
[2019-07-25] MEDS: NS 1,000 ML IV SCH (09:35)
[2019-07-25 10:00] VITALS: BP 141/94
[2019-07-25] MEDS: PANTOPRAZOLE 40MG TAB (PROTONIX) PO SCH ×2 (10:50→20:46)
--- NOTE | 2019-07-25 11:11 | IPN ---
DATE: 07/24/2019 HISTORY: The patient was admitted with some epigastric pain and nausea and vomiting. She had a gallbladder ultrasound that showed no gallstones but a CT scan I believe showed some enhancement of the gallbladder wall. She continued with some tenderness in the epigastrium and a nuclear biliary scan was ordered. This was done earlier this morning and I have been awaiting read from the radiologist. Vital signs show that she has been afebrile. Her pulse is in the 60s generally, and her blood pressure is fine. Intake and output shows that her urine output is adequate. PHYSICAL EXAMINATION: The patient is lying quietly on the hospital bed. She appears quite comfortable. She denies any significant nausea at present. She reports she still has some soreness in the epigastrium. The abdomen is flat and soft with some bowel sounds present. Laboratory studies from this morning showed a white count of 9, hemoglobin 12, hematocrit 37. Her platelet count was 283,000 and her neutrophil count was 65% with lymphocytes 27% and monocytes 6%. A chemistry profile showed normal electrolytes with the exception of a potassium minimally reduced at 3.4. IMAGING: The patient's nuclear scan was done this afternoon. There is good flow of tracer into the liver and then into the bile duct and small bowel. On early images it is difficult to tell if the gallbladder has spilled as this appears to overlie the area of the duodenum, which also contains some tracer. However, on all lateral view there is clearly a collection of tracer anteriorly likely representing the gallbladder. IMPRESSION: The patient's symptoms appear to be somewhat improved. Her nuclear biliary scan appears negative for cystic duct obstruction on my review of the images. I have ordered her some clear liquids so that she can try these. It may well be that this represents a gastritis or gastroenteritis type of process. With a negative biliary scan I would not recommend any further consideration of gallbladder surgery. At this point, I will defer to the hospitalist as to further testing.
[2019-07-25 14:00] VITALS: BP 138/94
[2019-07-25 18:00] VITALS: BP 125/90
--- NOTE | 2019-07-25 18:13 | IPNPDOC ---
Text Note Date of Service The patient was seen on 07/25/19. NOTE SUBJECTIVE: -pain is improving, tolerated full liquid diet at lunch and getting regular diet at dinner -HIDA scan was negative, as was the CT and US prior for gall bladder pathology OBJECTIVE: GEN: well-nourished, well developed, NAD HEENT: NCAT CVS: RRR, no m/r/g LUNGS: CTAB ABDOMEN: Normoactive sounds, tender epigastrium, negative Muniz's, no masses, no guarding or rigidity NEURO: CN 2-12 are grossly intact, normal gait PSYCH: AOx3 LABORATORY DATA: reviewed IMAGING: US Gallbladder "IMPRESSION: Negative right upper quadrant ultrasound." CT abdomen "IMPRESSION: No free air or free fluid. Appendix is normal. The only significant findings identified are somewhat diminished angle between the abdominal aorta and superior mesenteric artery of 22 degrees, as well as decreased distance between the superior mesenteric artery and abdominal aorta at 5 mm. The findings suggest superior mesenteric artery syndrome. " MICROBIOLOGY: Please see below. ASSESSMENT: Ms. Payne is a 29-year-old with a history of bipolar disorder, depression and polysubstance abuse who is admitted for evaluation of abdominal pain of unclear etiology. PLAN: 1 Abdominal pain Possibly 2/2 SMA syndrome vs unlikely cholecystitis, Dr. Myers consulted, getting HIDA this afternoon -advance diet as tolerated -discontinue IVF -continue zofran -discontinue IV toradol, make it PO with tylenol alternating -stop morphine -stop zosyn 2. Polysubstance abuse -Fall and seizure precautions / Thiamine, Ativan, & folic acid per [facility] protocol DVT PROPHYLAXIS: SCDs DISPOSITION: Pending clinical course, likely home tomorrow VS,Fishbone, I+O VS, Fishbone, I+O Vital Signs Date Time Temp Pulse Resp B/P (MAP) Pulse Ox O2 Delivery O2 Flow Rate FiO2 07/25/19 14:00 99.4 62 18 138/94 (109) 100 Room Air I&O- Last 24 Hours up to 6 AM 07/25/19 06:00 Intake Total 2600 ml Output Total 300 ml Balance 2300 ml TEJAL DE LEÓN MD Jul 25, 2019 18:13
[2019-07-25] MEDS ORDERED: ACETAMINOPHEN TAB 650MG DOSE (2X325MG) PO PRN (18:15)
[2019-07-25] MEDS: RAMELTEON 8 MG TAB (ROZEREM) PO SCH (20:46)
[2019-07-25] MEDS: KETOROLAC TROMETHAMINE 10 MG TAB PO PRN (21:48)
[2019-07-25 22:00] VITALS: BP 116/82
[2019-07-26] VITALS (7 sets, daily range): BP systolic 107–132; BP diastolic 70–86
[2019-07-26] MEDS: KETOROLAC TROMETHAMINE 10 MG TAB PO PRN ×2 (04:43→11:14)
[2019-07-26 06:10] LABS: HEMATOCRIT 40.3 % (36.0-47.0); HEMOGLOBIN 13.7 g/dl (12.0-15.5); MEAN CORPUSCULAR HEMOGLOBIN 28.9 pg (27.0-33.0); PLATELET COUNT, AUTOMATED 199 10^3/uL (150-450); RED BLOOD COUNT 4.74 10^6/uL (4.00-5.40); WHITE BLOOD COUNT 7.8 10^3/uL (4.0-10.0)
[2019-07-26 06:39] LABS: BLOOD UREA NITROGEN 10 MG/DL (7-18); CALCIUM LEVEL 8.5 MG/DL (8.5-10.1); CARBON DIOXIDE LEVEL 22 MEQ/L (21-32); CHLORIDE LEVEL 109 MEQ/L (98-107); CREATININE FOR GFR 0.67 MG/DL (0.55-1.30); GLOMERULAR FILTRATION RATE > 60.0 (>60); GLUCOSE, FASTING 98 MG/DL (70-100); POTASSIUM SERUM 3.4 MEQ/L (3.5-5.1); SODIUM LEVEL 139 MEQ/L (136-145)
[2019-07-26] MEDS ORDERED: PANT40TA3 PO (07:11)
[2019-07-26] MEDS: DOCUSATE SODIUM 100 MG CAP PO SCH ×2 (09:00→21:22)
[2019-07-26] MEDS: PANTOPRAZOLE 40MG TAB (PROTONIX) PO SCH ×2 (09:40→21:23)
[2019-07-26] MEDS ORDERED: POTASSIUM CHLORIDE 10 MEQ SR TABLET PO ONE (11:00)
--- NOTE | 2019-07-26 11:03 | IPNPDOC ---
Text Note Date of Service The patient was seen on 07/26/19. NOTE SUBJECTIVE: -pain is improving, tolerating regular diet, off fluids -HIDA scan showed delayed visualization of gall bladder and per surgery ultimately negative, as was the CT and US prior for gall bladder pathology OBJECTIVE: GEN: well-nourished, well developed, NAD HEENT: NCAT CVS: RRR, no m/r/g LUNGS: CTAB ABDOMEN: Normoactive sounds, tender epigastrium, negative Muniz's, no masses, no guarding or rigidity NEURO: CN 2-12 are grossly intact, normal gait PSYCH: AOx3 LABORATORY DATA: reviewed MICROBIOLOGY: Please see below. ASSESSMENT: Ms. Payne is a 29-year-old with a history of bipolar disorder, depression and polysubstance abuse who is admitted for evaluation of abdominal pain likely gastritis. PLAN: 1 Abdominal pain: most likely gastritis -unlikely 2/2 SMA syndrome vs cholecystitis, Dr. Myers consulted, and deemed unlikely at this time. -tolerating regular diet -pain control with PRN tylenol and PRN toradol as well as k-pad -Likely discharge home soon, declined to go today, agreed for tomorrow discharge, to follow up with PCP -continue PPI BID 2. Polysubstance abuse -Fall and seizure precautions / Thiamine, Ativan, & folic acid per [facility] lee -will restart her home meds DVT PROPHYLAXIS: SCDs DISPOSITION: Pending clinical course, likely home tomorrow VS,Fishbone, I+O VS, Fishbone, I+O Laboratory Tests 07/26/19 05:49 Vital Signs Date Time Temp Pulse Resp B/P (MAP) Pulse Ox O2 Delivery O2 Flow Rate FiO2 07/26/19 06:00 98.7 58 19 132/86 (101) 99 Room Air I&O- Last 24 Hours up to 6 AM 07/26/19 06:00 Intake Total 2800 ml Output Total 200 ml Balance 2600 ml TEJAL DE LEÓN MD Jul 26, 2019 07:15
[2019-07-26] MEDS ORDERED: BACLOFEN 10 MG TAB PO PRN (11:15)
[2019-07-26] MEDS ORDERED: MIRALAX *UNIT DOSE* 17GM PACKET PO PRN (11:15)
[2019-07-26] MEDS ORDERED: SUMAtriptan SUCCINATE 25 MG TAB PO PRN (11:15)
[2019-07-26] MEDS ORDERED: ONDANSETRON 4 MG ORAL DISINTEGRATING TAB SL PRN (11:30)
[2019-07-26] MEDS: BUPRENORPHINE/NALOXONE 8-2MG SUBLINGUAL TABLET(SUBOXONE) SL SCH (11:50)
[2019-07-26] MEDS: TOPIRAMATE (TopAMAX) 25 MG TAB PO SCH ×2 (11:50→21:23)
[2019-07-26] MEDS ORDERED: QUEtiapine FUMARATE 100 MG TAB PO SCH (21:00)
[2019-07-26] MEDS ORDERED: SENNA 8.6 MG TAB (SENOKOT) PO SCH (21:00)
[2019-07-26] MEDS: RAMELTEON 8 MG TAB (ROZEREM) PO SCH (21:00)
[2019-07-26] MEDS ORDERED: cloNIDine 0.1 MG TAB PO SCH (21:00)
[2019-07-27 02:00] VITALS: BP 110/73
[2019-07-27 06:00] VITALS: BP 90/52
--- NOTE | 2019-07-27 08:39 | DS.PDOC ---
Discharge Summary General Date of Admission Jul 23, 2019 at 16:10 Date of Discharge 07/27/2019 Attending Physician: TEJAL DE LEÓN MD Discharge Summary PROCEDURES PERFORMED DURING STAY: None ADMITTING DIAGNOSES: 1. Abdominal pain DISCHARGE DIAGNOSES: 1. Gastritis COMPLICATIONS/CHIEF COMPLAINT: Vomiting. HISTORY OF PRESENT ILLNESS: 29-year-old W who presented with diffuse abdominal pain of 2 day duration, nonradiating upper gradually worsening 8 out of 10 in severity, abdominal pain, without prior history of abdominal complaints, no new foods or takeout, or aggravating or alleviating factors. 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 Alonso who recommended consulting surgery and Dr. Roach thought it unlikely and suggested a gall bladder US. Both CT A/P and gall bladder US did not show any cholelithiasis or evidence of cholecystitis or biliary tree pathology and Dr. Myers also further investigated with a HIDA scan that he deemed ultimately negative despite noting delayed gallbladder visualization. Her diet was slowly advanced with aggressive hydration until her pain improved. She is now being discharged home to follow up with her PCP within 1-2weeks in the event that her pain persists and may require outpatient GI referral. DISCHARGE MEDICATIONS: Please see below. ALLERGIES: Please see below. PHYSICAL EXAMINATION ON DISCHARGE: VITAL SIGNS: Please see below. GEN: well-nourished, well developed, NAD HEENT: NCAT CVS: RRR, no m/r/g LUNGS: CTAB ABDOMEN: Normoactive sounds, tender epigastrium, negative Muniz's, no masses, no guarding or rigidity NEURO: CN 2-12 are grossly intact, normal gait PSYCH: AOx3 LABORATORY DATA: Please see below. IMAGING: US Gallbladder "IMPRESSION: Negative right upper quadrant ultrasound." CT abdomen "IMPRESSION: No free air or free fluid. Appendix is normal. The only significant findings identified are somewhat diminished angle between the abdominal aorta and superior mesenteric artery of 22 degrees, as well as decreased distance between the superior mesenteric artery and abdominal aorta at 5 mm. The findings suggest superior mesenteric artery syndrome. " HIDA SCAN: Delayed visualization of the gallbladder. PROGNOSIS: Good ACTIVITY: As tolerated DIET: As tolerated, regular DISCHARGE PLAN: home with PCP follow up and continue PPI daily DISPOSITION: Home DISCHARGE INSTRUCTIONS: 1. Please continue to take protonix 40mg daily and see your PCP within 1-2 weeks for follow up ITEMS TO FOLLOWUP ON ON OUTPATIENT: 1. Abdominal pain DISCHARGE CONDITION: Stable TIME SPENT ON DISCHARGE: 35 minutes. Vital Signs/I&Os Vital Signs Date Time Temp Pulse Resp B/P (MAP) Pulse Ox O2 Delivery O2 Flow Rate FiO2 07/26/19 06:00 98.7 58 19 132/86 (101) 99 Room Air I&O- Last 24 Hours up to 6 AM 07/26/19 06:00 Intake Total 2800 ml Output Total 200 ml Balance 2600 ml Laboratory Data Labs 24H Laboratory Tests 2 07/26/19 05:49: Nucleated Red Blood Cells % (auto) 0.0, Anion Gap 8, Glomerular Filtration Rate > 60.0, Calcium Level 8.5 CBC/BMP Laboratory Tests 07/26/19 05:49 Discharge Medications Scheduled Buprenorphine HCl/Naloxone HCl (Suboxone 8 mg-2 mg Sl Film) 1 Each Film, 1 STRIP SL DAILY, (Reported) Clonidine Hcl (Clonidine HCl) 0.1 Mg Tablet, 0.1 MG PO QHS, (Reported) Docusate Sodium (Colace) 100 Mg Capsule, 100 MG PO BID, (Reported) Levonorgestrel (Mirena) 1 Each Iud, 20 MCG IU ASDIRECTED, (Reported) IMPLANTED 12/2018 Pantoprazole Sodium (Pantoprazole Sodium) 40 Mg Tablet.dr, 40 MG PO DAILY Quetiapine Fumarate (Seroquel) 100 Mg Tablet, 200 MG PO QHS, (Reported) Senna (Senna Lax) 8.6 Mg Tablet, 17.2 MG PO QHS, (Reported) Topiramate (Topiramate) 50 Mg Tablet, 50 MG PO BID, (Reported) Scheduled PRN Baclofen (Baclofen) 10 Mg Tablet, 10 MG PO TID PRN for PAIN, (Reported) Polyethylene Glycol 3350 (Miralax) 17 Gm Powd.pack, 17 GM PO DAILY PRN for CONSTIPATION, (Reported) Sumatriptan Succinate (Sumatriptan Succinate) 50 Mg Tablet, 50 MG PO BID PRN for MIGRAINE, (Reported) Allergies Coded Allergies: No Known Allergies (Unverified , 03/08/19) TEJAL DE LEÓN MD Jul 26, 2019 07:10
[2019-07-27] MEDS: DOCUSATE SODIUM 100 MG CAP PO SCH (09:57)
[2019-07-27] MEDS: PANTOPRAZOLE 40MG TAB (PROTONIX) PO SCH (09:58)
[2019-07-27] MEDS: TOPIRAMATE (TopAMAX) 25 MG TAB PO SCH (09:58)
[2019-07-27] MEDS: BUPRENORPHINE/NALOXONE 8-2MG SUBLINGUAL TABLET(SUBOXONE) SL SCH (10:03)
== END 2019-07-27 10:43 | disposition home or self-care (01) | DRG 241 ==
LOC: M ED 12:50 → M ED INP 16:10 → M MSPAV 17:05 → ENRESERV 17:54
PROVIDERS: ADMIT Internal Medicine; ATTEND Internal Medicine
DX: K29.70 Gastritis, unspecified, without bleeding (principal); F31.9 Bipolar disorder, unspecified; Z79.899 Other long term (current) drug therapy; G40.909 Epilepsy, unspecified, not intractable, without status epilepticus; F17.200 Nicotine dependence, unspecified, uncomplicated

== ENCOUNTER → 2019-08-15 | Outpatient (CLI) | payer OTHER ==
[~2019-08-15] MED LIST changes: +COLA100C5 PO; +PANT40TA3 PO; +SENN18TA PO
== END ==
LOC: M LABSMTC 13:08
PROVIDERS: ATTEND Anesthesiology
DX: Z03.818 Encounter for observation for suspected exposure to other biological agents ruled out (principal); Z11.59 Encounter for screening for other viral diseases
CPT/HCPCS: C9803; U0003

== ENCOUNTER 2019-08-19 08:36 | Day surgery (SDC) | payer OTHER ==
[~2019-08-19] VITALS: Ht 170.2 cm; Wt 57.1 kg
[~2019-08-19 08:36] MED LIST changes: +NS 1,000 ML IV ONE; +PANT40TA29 PO; -PANT40TA3 PO
[2019-08-19] MEDS ORDERED: propofoL 200 MG/20 ML VIAL As Ordered ONE (10:24)
[2019-08-19] MEDS ORDERED: LIDOCAINE 2% 100MG/5ML SDV (FOR ANES.) As Ordered ONE (10:24)
--- NOTE | 2019-08-19 10:50 | ROOR ---
Patient Name: Conchita Payne Procedure Date: 08/19/2019 10:03 AM Date of : 1990 Age: 29 Room: [facility] Gender: Female Note Status: Finalized Procedure: Colonoscopy Indications: Chronic diarrhea, Weight loss Providers: Ender Wang MD Referring MD: Carolina Morales MD Requesting Provider: Medicines: Monitored Anesthesia Care Complications: No immediate complications. Procedure: Pre-Anesthesia Assessment: - Prior to the procedure, a History and Physical was performed, and patient medications and allergies were reviewed. The patient is competent. The risks and benefits of the procedure and the sedation options and risks were discussed with the patient. All questions were answered and informed consent was obtained. Patient identification and proposed procedure were verified by the physician, the nurse and the anesthesiologist in the procedure room. Mental Status Examination: normal. Airway Examination: normal oropharyngeal airway and neck mobility. Respiratory Examination: clear to auscultation. CV Examination: normal. Prophylactic Antibiotics: The patient does not require prophylactic antibiotics. Prior Anticoagulants: The patient has taken no previous anticoagulant or antiplatelet agents. After reviewing the risks and benefits, the patient was deemed in satisfactory condition to undergo the procedure. The anesthesia plan was to use monitored anesthesia care (MAC). Immediately prior to administration of medications, the patient was re-assessed for adequacy to receive sedatives. The heart rate, respiratory rate, oxygen saturations, blood pressure, adequacy of pulmonary ventilation, and response to care were monitored throughout the procedure. The physical status of the patient was re-assessed after the procedure. The Colonoscope was introduced through the anus and advanced to the terminal ileum, with identification of the appendiceal orifice and IC valve. The colonoscopy was performed without difficulty. The patient tolerated the procedure well. The quality of the bowel preparation was fair. The terminal ileum, ileocecal valve, appendiceal orifice, and rectum were photographed. Scope insertion time was 3 minutes. Scope withdrawal time was 9 minutes. The total duration of the procedure was 15 minutes. Findings: The perianal and digital rectal examinations were normal. The terminal ileum appeared normal. Normal mucosa was found in the entire colon. Biopsies for histology were taken with a cold forceps from the right colon, left colon and rectosigmoid colon for evaluation of microscopic colitis. Verification of patient identification for the specimen was done by the physician and nurse using the patient's name, date and medical record number. Estimated blood loss was minimal. Non-bleeding external and internal hemorrhoids were found during retroflexion. The hemorrhoids were moderate. Impression: - Preparation of the colon was fair. - The examined portion of the ileum was normal. - Normal mucosa in the entire examined colon. Biopsied. - Non-bleeding external and internal hemorrhoids. Recommendation: - Patient has a contact number available for emergencies. The signs and symptoms of potential delayed complications were discussed with the patient. Return to normal activities tomorrow. Written discharge instructions were provided to the patient. - High fiber diet. - Continue present medications. - Await pathology results. - Repeat colonoscopy at age 49 for screening purposes. - Telephone GI clinic for pathology results in 2 weeks. - Return to primary care physician. Ender Wang MD Ender Wang MD 08/19/2019 10:49:34 AM Electronically signed by Ender Wang MD Number of Addenda: 0 Note Initiated On: 08/19/2019 10:03 AM Estimated Blood Loss: Estimated blood loss was minimal.
[2019-08-19 10:55] VITALS: BP 118/72
== END 2019-08-19 11:15 | disposition home or self-care (01) ==
LOC: M OPP 08:36
PROVIDERS: ATTEND Internal Medicine Gastroenterology
DX: K64.8 Other hemorrhoids (principal); R63.4 Abnormal weight loss; R19.7 Diarrhea, unspecified; K62.5 Hemorrhage of anus and rectum; Z79.899 Other long term (current) drug therapy

== ENCOUNTER → 2019-10-23 | Outpatient (CLI) | payer MEDICAID ==
[~2019-10-23] MED LIST changes: -NS 1,000 ML IV ONE
== END ==
LOC: M OUTALCOH 08:05
PROVIDERS: ATTEND Psychiatry & Neurology Addiction Medicine
DX: F11.20 Opioid dependence, uncomplicated (principal)

== ENCOUNTER → 2019-11-13 | Outpatient (RCR) | payer MEDICAID | LOC: M OUTALCOH 11-05 15:49 | PROVIDERS: ATTEND Psychiatry & Neurology Addiction Medicine | DX: F16.20 Hallucinogen dependence, uncomplicated (principal); F11.20 Opioid dependence, uncomplicated; F17.200 Nicotine dependence, unspecified, uncomplicated ==

== ENCOUNTER 2019-12-13 08:45 | Outpatient (RCR) | payer MEDICAID | END 2019-12-14 | LOC: M OUTALCOH 08:45 | PROVIDERS: ATTEND Psychiatry & Neurology Addiction Medicine | DX: F16.20 Hallucinogen dependence, uncomplicated (principal); F11.20 Opioid dependence, uncomplicated; F17.200 Nicotine dependence, unspecified, uncomplicated ==

== ENCOUNTER 2019-12-16 11:40 | Outpatient (RCR) | payer MEDICAID | END 2020-01-13 | LOC: M OUTALCOH 11:40 | PROVIDERS: ATTEND Psychiatry & Neurology Addiction Medicine | DX: F16.20 Hallucinogen dependence, uncomplicated (principal); F11.20 Opioid dependence, uncomplicated; F17.200 Nicotine dependence, unspecified, uncomplicated ==

== ENCOUNTER → 2020-07-17 | Outpatient (CLI) | payer OTHER ==
[~2020-07-17] MED LIST changes: +QUET50TA3 PO; -QUET5TAB PO
== END ==
LOC: M OUTALCOH 10:02
PROVIDERS: ATTEND Psychiatry & Neurology Psychiatry
DX: F11.20 Opioid dependence, uncomplicated (principal); F16.20 Hallucinogen dependence, uncomplicated

== ENCOUNTER → 2020-09-04 | Outpatient (CLI) | payer OTHER ==
[~2020-09-04] MED LIST changes: +OLAN1TAB16 PO; -OLAN5TAB PO
== END ==
LOC: M OUTALCOH 07:31
PROVIDERS: ATTEND Psychiatry & Neurology Psychiatry
DX: F16.20 Hallucinogen dependence, uncomplicated (principal)

== ENCOUNTER 2020-09-11 14:06 | Outpatient (RCR) | payer OTHER | END 2020-09-12 | LOC: M OUTALCOH 14:06 | PROVIDERS: ATTEND Psychiatry & Neurology Psychiatry | DX: F16.20 Hallucinogen dependence, uncomplicated (principal) ==

== ENCOUNTER 2020-10-12 08:45 | Outpatient (RCR) | payer OTHER ==
[~2020-10-12 08:45] MED LIST changes: -QUET50TA3 PO; +QUET50TA4 PO
== END 2020-10-13 ==
LOC: M OUTALCOH 08:45
PROVIDERS: ATTEND Psychiatry & Neurology Psychiatry
DX: F16.20 Hallucinogen dependence, uncomplicated (principal); F11.21 Opioid dependence, in remission

== ENCOUNTER 2020-10-21 08:45 | Outpatient (RCR) | payer OTHER | END 2020-11-12 | LOC: M OUTALCOH 08:45 | PROVIDERS: ATTEND Psychiatry & Neurology Psychiatry | DX: F11.20 Opioid dependence, uncomplicated (principal); F16.20 Hallucinogen dependence, uncomplicated ==

== ENCOUNTER → 2021-12-03 | Outpatient (CLI) | payer OTHER | LOC: M OUTALCOH 08:14 | PROVIDERS: ATTEND Psychiatry & Neurology Psychiatry | DX: F10.10 Alcohol abuse, uncomplicated (principal) ==

== ENCOUNTER 2022-01-11 09:00 | Outpatient (RCR) | payer OTHER | END 2022-01-12 | LOC: M OUTALCOH 09:00 | PROVIDERS: ATTEND Psychiatry & Neurology Psychiatry | DX: F16.20 Hallucinogen dependence, uncomplicated (principal); F11.21 Opioid dependence, in remission ==

== ENCOUNTER 2022-03-07 16:56 | Emergency (ER) | payer OTHER ==
[~2022-03-07] VITALS: Ht 170.2 cm; Wt 68.2 kg
[2022-03-07 16:58] VITALS: BP 141/77
== END 2022-03-07 21:00 | disposition left against medical advice (07) ==
LOC: M ED 16:56
DX: Z53.21 Procedure and treatment not carried out due to patient leaving prior to being seen by health care provider (principal)

== ENCOUNTER 2022-03-07 22:48 | Emergency (ER) | payer OTHER ==
[~2022-03-07] VITALS: Ht 170.2 cm; Wt 68.2 kg
[2022-03-08 03:44] VITALS: BP 134/70
== END 2022-03-08 06:35 | disposition left against medical advice (07) ==
LOC: M ED 22:48
DX: Z53.21 Procedure and treatment not carried out due to patient leaving prior to being seen by health care provider (principal)

== ENCOUNTER 2022-07-09 12:44 | Emergency (ER) | payer OTHER ==
[~2022-07-09] VITALS: Ht 170.2 cm; Wt 60.6 kg
[~2022-07-09 12:44] MED LIST changes: +TOPI-254 PO; -TOPI50TA9 PO
[2022-07-09] MEDS ORDERED: IBUP200T46 PO (12:59)
[2022-07-09 13:46] LABS: BASO % 0.3 % (0.0-1.0); EOS # 0.1 10^3/uL (0.0-0.5); EOS % 1.2 % (0.0-3.0); HEMATOCRIT 31.9 % (36.0-47.0); HEMOGLOBIN 10.4 g/dl (12.0-15.5); LYMPH # 1.8 10^3/uL (1.5-5.0); LYMPH % 15.2 % (24.0-44.0); MEAN CORPUSCULAR HEMOGLOBIN 28.7 pg (27.0-33.0); MEAN CORPUSCULAR HGB CONC 32.6 g/dl (32.0-36.5); MEAN CORPUSCULAR VOLUME 87.9 fl (80.0-96.0); MONO # 0.7 10^3/uL (0.0-0.8); NEUTROPHILS % 76.8 % (36.0-66.0); PLATELET COUNT, AUTOMATED 519 10^3/uL (150-450); RED BLOOD COUNT 3.63 10^6/uL (4.00-5.40); WHITE BLOOD COUNT 11.8 10^3/uL (4.0-10.0)
[2022-07-09] MEDS ORDERED: DALBAVANCIN 1,500 MG in D5W 250 ML IV ONE (14:40)
[2022-07-09 16:35] VITALS: BP 134/76
== END 2022-07-09 16:37 | disposition home or self-care (01) ==
LOC: M ED 12:44
DX: L03.113 Cellulitis of right upper limb (principal); L03.116 Cellulitis of left lower limb; J45.909 Unspecified asthma, uncomplicated; Z87.42 Personal history of other diseases of the female genital tract; Z79.1 Long term (current) use of non-steroidal anti-inflammatories (NSAID); Z79.899 Other long term (current) drug therapy
CPT/HCPCS: 80047; 83605; 84702; 85025; 87040; 96365; 99283; J0875

== ENCOUNTER 2023-06-16 10:12 | Emergency (ER) | payer OTHER ==
[~2023-06-16] VITALS: Ht 170.2 cm; Wt 57.6 kg
[~2023-06-16 10:12] MED LIST changes: +IBUP200T46 PO; -MIRA1POW3 PO; +MIRA33506 PO; +SENN-111 PO; -SENN18TA PO; +TOPI-21 PO; -TOPI-254 PO
[2023-06-16] MEDS ORDERED: VANCOMYCIN HCL 1,000 MG, VIAL MATE ADAPTER 1 EACH in D5W 250 ML IV ONE (11:20)
[2023-06-16] MEDS: CEFEPIME HCL 2 GM in D5W MINI-BAG PLUS 50 ML IV ONE (12:04)
[2023-06-16] MEDS: KETOROLAC 30 MG/ML 1ML VIAL IV ONE (12:04)
[2023-06-16 12:08] LABS: BASO % 0.5 % (0.0-1.0); EOS # 0.1 10^3/uL (0.0-0.5); EOS % 2.1 % (0.0-3.0); HEMATOCRIT 39.3 % (36.0-47.0); HEMOGLOBIN 12.7 g/dl (12.0-15.5); LYMPH # 2.2 10^3/uL (1.5-5.0); LYMPH % 38.1 % (24.0-44.0); MEAN CORPUSCULAR HEMOGLOBIN 27.5 pg (27.0-33.0); MEAN CORPUSCULAR HGB CONC 32.3 g/dl (32.0-36.5); MEAN CORPUSCULAR VOLUME 85.2 fl (80.0-96.0); MONO # 0.4 10^3/uL (0.0-0.8); MONO % 7.8 % (2.0-8.0); NEUTROPHILS # 2.9 10^3/uL (1.5-8.5); NEUTROPHILS % 51.1 % (36.0-66.0); PLATELET COUNT, AUTOMATED 314 10^3/uL (150-450); RED BLOOD COUNT 4.61 10^6/uL (4.00-5.40); WHITE BLOOD COUNT 5.6 10^3/uL (4.0-10.0)
[2023-06-16 12:22] LABS: ERYTHROCYTE SEDIMENTATION RATE 69 mm/hr (0-20)
[2023-06-16 12:28] LABS: C REACTIVE PROTEIN QUANTITATIV < 0.40 MG/DL (<1.0)
[2023-06-16 12:30] LABS: BLOOD UREA NITROGEN 24 MG/DL (9-23); CARBON DIOXIDE LEVEL 31 MMOL/L (20-31); CHLORIDE LEVEL 100 MMOL/L (98-107); CREATININE FOR GFR 0.77 MG/DL (0.55-1.30); GLOMERULAR FILTRATION RATE > 60.0 (>60); GLUCOSE, FASTING 88 MG/DL (60-100); POTASSIUM SERUM 3.4 MMOL/L (3.5-5.1); SODIUM LEVEL 138 MMOL/L (136-145)
[2023-06-16] MEDS: VANCOMYCIN HCL 1,000 MG, VIAL MATE ADAPTER 1 EACH in D5W 250 ML IV ONE (12:38)
[2023-06-16 12:44] LABS: HCG, SERUM QUALITATIVE NEGATIVE (NEGATIVE)
[2023-06-16] MEDS ORDERED: ISOVUE-370 76% 100ML VIAL As Ordered ONE (12:52)
[2023-06-16] MEDS ORDERED: CEPH500C PO (13:56)
[2023-06-16] MEDS ORDERED: BACT800T5 PO (13:56)
[2023-06-16] MEDS ORDERED: KETO10TAB PO (13:56)
[2023-06-16 14:04] VITALS: BP 133/76; TEMP 98.6; O2SAT 100
== END 2023-06-16 14:10 | disposition home or self-care (01) ==
LOC: M ED 10:12
DX: L03.116 Cellulitis of left lower limb (principal); L03.115 Cellulitis of right lower limb; G40.909 Epilepsy, unspecified, not intractable, without status epilepticus; J45.909 Unspecified asthma, uncomplicated; E23.7 Disorder of pituitary gland, unspecified; Z87.42 Personal history of other diseases of the female genital tract; Z79.2 Long term (current) use of antibiotics; Z79.1 Long term (current) use of non-steroidal anti-inflammatories (NSAID); Z79.899 Other long term (current) drug therapy
CPT/HCPCS: 73701; 80048; 83605; 84703; 85025; 85652; 86140; 87040; 96365; 96366; 96375; 99283; J0692; J1885; J3370; Q9967